=== PATIENT | male | born 1960 | race Caucasian/White ===

== ENCOUNTER 2016-05-19 08:06 | Outpatient (CLI) | payer MEDICARE ==
[~2016-05-19] VITALS: Ht 182.9 cm; Wt 82.7 kg
--- NOTE | ~2016-05-19 | HEMODYNAMI ---
PATIENT:ALFREDITO BERGERON MEDICAL RECORD: [id number] : 58 LOCATION:[facility] ADMISSION DATE: 05/19/16 Generatedon:05/19/201610:00 Patient name: ALFREDITO BERGERON Patient #: [id number] : 1960 Date of study: 05/19/2016 Page: Of Hemodynamic Procedure Report Patient Data Patient Demographics Procedure consent was obtained First Name: ALFREDITO Gender: Male Last Name: RUBIO : 1960 Middle Initial: LIZETH Age: 56 year(s) Patient #: [id number] Race: SSN: [id number] Additional ID: [id number] Contact details Address: [address] [place] [address] [place] State: [place] City: [place] Zip code: [address] Past Medical History History of disease Date Diagnosis Comments CAD Allergies: No known allergies Admission Admission Data Admission Date: 05/19/2016 Admission Time: 8:06 Arrival Date: 05/19/2016 Arrival Time: 10:00 Admit Source: Other Insurance Payor: Medicare Height (in.): 72 BSA: 1.99 (m2) Height (cm.): 182.88 BMI: 23.06 (kg/m2) Weight (lbs.): 170 Weight (kg.): 77.11 Lab Results Lab Result Date: 05/19/2016 Lab Result Time: 0:00 Biochemistry Name Units Result Min Max BUN mg/dl 13 --(--*-)-- 7 18 Creatinine mg/dl 0.9 --(-*--)-- 0.6 1.3 CBC Name Units Result Min Max Hemoglobin g/dl 15.6 --(--*-)-- 13.5 17.5 Procedure Procedure Types Cath Procedure Diagnostic Procedure [facility] w/Coronaries PCI Procedure Coronary Stent Initial Procedure Description Procedure Date Procedure Date: 05/19/2016 Procedure Start Time: 9:43 Procedure End Time: 9:57 Procedure Staff Name Function Keenan Meyer MD Performing Physician Shari Handy RT Scrub Abida Jacobs RN Nurse Benjamin Galvan RT Associate Professor Of Theology Minerva Beal RT Monitor Procedure Data Cath Procedure Fluoroscopy Diagnostic fluoroscopy Total fluoroscopy Time: 3.9 time: 3.9 min min Diagnostic fluoroscopy Total fluoroscopy dose: dose: 205.47 mGy 205.47 mGy Contrast Material Contrast Material Type Amount (ml) Isovue 370 75 Entry Location Entry Primary Successful Side Size Upsize Upsize Entry Closure Succes sful Closure Location (Fr) 1 (Fr) 2 (Fr) Remarks Device Remarks Femoral Right 5 Fr 6 Fr Exoseal artery Short Estimated blood loss: 5 ml Diagnostic catheters Device Type Used For End Catheter Placement Cordis 5Fr Pigtail LV Angiography Catheter (MP) Cordis 5Fr JL 4.0 Left Coronary Catheter (MP) Angiography Cordis 5Fr 3DRC Catheter Right Coronary (MP) Angiography Procedure Complications No complications Procedure Medications Medication Administration Route Dosage Oxygen NC 2 l/min Heparin Flush Bag added to field 2 bags (1000units/500ml NS) Lidocaine 2% added to field 20 Versed I.V. 1 mg Fentanyl I.V. 50 mcg Versed I.V. 1 mg Fentanyl I.V. 50 mcg Versed I.V. 1 mg Fentanyl I.V. 50 mcg Versed I.V. 1 mg Fentanyl I.V. 50 mcg Heparin Bolus I.V. 4000 units Hemodynamics Rest BSA: 1.99 (m2) HGB: 15.6 (g/dl) O2 Consumption: Estimated: 219.21 (ml/min) O2 Co nsumption indexed: Estimated:110.16 (ml/min/m) Heart Rate: 49 (bpm) Pressure Samples Time Site Value (mmHg) Purpose Heart Use Rate(bpm) 9:44 LV 46/39,42 Snapshot 60 Snapshots Pre Cath Intra NCS Post Cath Vital Signs Time Heart Resp SPO2 NIBP Rhythm Pain Sedation Rate (ipm) (%) (mmHg) Status Level (bpm) 9:22:31 63 16 98 125/73(90) NSR 0 (11) 10(A) , No pain 9:26:45 66 14 97 126/70(84) NSR 0 (11) 10(A) , No pain 9:30:53 68 14 94 116/69(84) NSR 0 (11) 10(A) , No pain 9:35:05 65 15 96 118/67(87) NSR 0 (11) 10(A) , No pain 9:39:19 61 15 97 113/66(77) NSR 0 (11) 10(A) , No pain 9:43:27 64 15 100 115/72(86) NSR 0 (11) 10(A) , No pain 9:47:39 64 15 99 111/67(82) NSR 0 (11) 9(A) , No pain 9:51:51 67 15 99 100/62(77) NSR 0 (11) 9(A) , No pain 9:55:54 67 16 100 105/72(85) NSR 0 (11) 9(A) , No pain 9:57:33 64 19 100 114/71(87) NSR 0 (11) 9(A) , No pain Medications Time Medication Route Dose Verified Delivered Reason Notes Effectiveness by by 9:24:25 Oxygen NC 2 Keenan Abida Per physician l/min Betsy Jacobs RN 9:24:33 Heparin Flush added 2 Keenan Keenan used for Bag to bags Betsy Meyer MD procedure (1000units/500ml field NS) 9:24:42 Lidocaine 2% added 20ml Keenan Keenan used for to vial Betsy Meyer MD procedure field 9:37:07 Versed I.V. 1 mg Keenan Abida for sedation Betsy Jacobs RN 9:37:13 Fentanyl I.V. 50 Keenan Abida for sedation mcg Betsy Jacobs RN 9:40:50 Versed I.V. 1 mg Keenan Abida for sedation Betsy Jacobs RN 9:40:58 Fentanyl I.V. 50 Keenan Abida for sedation mcg Betsy Jacobs RN 9:43:04 Versed I.V. 1 mg Keenan Abida for sedation Betsy Jacobs RN 9:43:14 Fentanyl I.V. 50 Keenan Abida for sedation mcg Betsy Jacobs RN 9:45:18 Versed I.V. 1 mg Keenan Abida for sedation Betsy Jacobs RN 9:45:21 Fentanyl I.V. 50 Keenan Abida for sedation mcg Betsy Jacobs RN 9:48:53 Heparin Bolus I.V. 4000 Keenan Abida for dose units Betsy Jacobs RN anticoagulation verified with dr meyer Procedure Log Time Note 9::42 Arrival Date: 05/19/2016 10:00:00 AM 9:07:44 Admit Source: Other 9:07:56 Patient Height : 182.88 inches 9:08:09 Patient Weight : 77.11 lbs 9:08:13 Insurance Payor : Medicare 9:08:40 Diagnostic Cath Status : Elective 9:09:14 Benjamin Galvan RT(R) sent for patient. Start room use. 9::15 Time tracking: Regular hours 9::22 Plan of Care:Hemodynamics will remain stable., Cardiac rhythm will remain stable., Comfort level will be maintained., Respiratory function will remain adequate., Patient/ family verbilizes understanding of procedure., Procedure tolerated without complication., Recovers from procedure without complications.. 9:09:26 Patient received from Outpatients to [facility] 3 Alert and oriented. Tansferred to table in Supine position. 9:09:38 H&P Date Dictated: 05/17/2016 Within 30 days and on chart., H&P Addendum completed by physician on day of procedure. (MUST COMPLETE FOR ALL OUTPATIENTS). 9:21:27 Warm blankets applied, and leslie hugger turned on for patient comfort. 9:21:27 Correct patient and procedure confirmed by team. 9:21:28 Signed procedure consent form obtained from patient. 9:21:29 ECG and BP/O2 sat monitors applied to patient. 9:21:29 Vital chart was started 9:23:27 Baseline sample Acquired. 9:24:25 Oxygen 2 l/min NC was given by Abida Jacobs RN; Per physician; 9:24:33 Heparin Flush Bag (1000units/500ml NS) 2 bags added to field was given by Keenan Meyer MD; used for procedure; 9:24:42 Lidocaine 2% 20ml vial added to field was given by Keenan Meyer MD; used for procedure; 9:25:20 Baseline sample Acquired. 9:26:57 Rhythm: sinus rhythm 9:26:59 Full Disclosure recording started 9:27:03 Pre-procedure instructions explained to patient. 9:27:04 Pre-op teaching completed and patient verbalized understanding. 9:27:06 Family in waiting room. 9:27:17 Patient NPO since Breakfast. 9:27:40 Is the patient allergic to Iodine/contrast media? No. 9:27:41 Was the patient premedicated? No 9:27:43 Is patient on blood thinner?Yes 9:27:47 ACC The patient was administered the following blood thiners within the last 24 hours: ACCPlavix 9:27:49 Patient diabetic? No. 9:27:53 Previous problem with sedation/anesthesia? No ? 9:28:36 Snore? Yes 9:28:46 Sleep apnea? No 9:29:12 Deviated septum? No 9:29:16 Opens mouth fully? Yes 9:29:17 Sticks out tongue? Yes 9:29:19 Airway obstruction? No ? 9:29:22 Dentures? No ? 9:29:28 Pre procedure: right dorsailis pedis pulse 1+ Palpable, but thready & weak; easily obliterated 9:29:31 Patient pain scale 0/10 ?. 9:29:40 IV patent on arrival in left forearm with 0.9% NaCl at [facility]. 9:30:02 Lab Result : BUN 13 mg/dl 9:30:02 Lab Result : Creatinine 0.9 mg/dl 9:30:02 Lab Result : Hemoglobin 15.6 g/dl 9:30:06 Lab results completed and on chart. 9:30:10 Right groin area was prepped with chlora-prep and draped in sterile fashion 9:30:11 Alarms reviewed by R. N. 9:30:12 Sharps counted by scrub and verified by R.N. 9:36:42 Physician arrived 9::43 --------ALL STOP TIME OUT------ 9:36:44 Final Timeout: patient, procedure, and site verified with staff and physician. All members of the team are in agreement. 9:36:47 Right groin site verified by team. 9:36:50 Physical assessment completed. ASA score P 2 - A patient with mild systemic disease as per Keenan Meyer MD. 9:36:53 Sedation plan: IV Moderate Sedation Versed, Fentanyl 9:37:07 Versed 1 mg I.V. was given by Abida Jacobs RN; for sedation; 9:37:13 Fentanyl 50 mcg I.V. was given by Abida Jacobs RN; for sedation; 9:37:36 Use device set Femoral Dx 9:37:37 Acist Syringe opened to sterile field. 9:37:38 Bag Decanter opened to sterile field. 9:37:39 Medline Cath Pack opened to sterile field. 9:37:39 Terumo 5Fr [place] Sheath opened to sterile field. 9:37:40 St Dandy 260cm J .035 wire opened to sterile field. 9:37:41 Acist Hand Control opened to sterile field. 9:37:42 Acist Manifold opened to sterile field. 9:37:43 Diagnostic Infinity 5Fr Multipack catheter opened to sterile field. 9:37:44 Tegaderm 4 x 4 opened to sterile field. 9:40:50 Versed 1 mg I.V. was given by Abida Jacobs RN; for sedation; 9:40:58 Fentanyl 50 mcg I.V. was given by Abida Jacobs RN; for sedation; 9:43:04 Versed 1 mg I.V. was given by Abida Jacobs RN; for sedation; 9:43:13 Procedure started. 9:43:14 Fentanyl 50 mcg I.V. was given by Abida Jacobs RN; for sedation; 9:43:16 Local anesthetic to right femoral artery with Lidocaine 2% by Keenan Meyer MD.INITIAL ACCESS ONLY 9:43:25 A 5 Fr sheath was inserted into the Right Femoral artery 9:44:02 A Cordis 5Fr Pigtail Catheter (MP) was advanced over the wire and used for LV Angiography. 9:44:21 LV hemodynamics recorded. 9:44:22 LV gram done using HOU 9:44:25 Injector settings: Ml/sec: 5, Volume: 15, 9:44:32 EF : 55 % 9:44:43 Catheter removed. 9:44:49 A Cordis 5Fr JL 4.0 Catheter (MP) was advanced over the wire and used for Left Coronary Angiography. 9:45:18 Versed 1 mg I.V. was given by Abida Jacobs RN; for sedation; 9:45:18 LCA angiography performed. 9:45:21 Fentanyl 50 mcg I.V. was given by Abida Jacobs RN; for sedation; 9:45:21 Injector settings: Ml/sec: 3, Volume: 6, 9:46:04 Catheter removed. 9:46:10 A Cordis 5Fr 3DRC Catheter (MP) was advanced over the wire and used for Right Coronary Angiography. 9:46:43 RCA angiography performed. 9:46:56 Injector settings: Ml/sec: 3, Volume: 6, 9:46:58 Catheter removed. 9:46:59 Proceeding to intervention. 9:47:15 Terumo 6Fr [place] Sheath opened to sterile field. 9:47:15 Mac Whisper J 300cm 0.014 guide wire opened to sterile field. 9:47:16 Signicast BasixCompak Inflation Kit opened to sterile field. 9:47:30 Medtronic Launcher 6Fr AR 2.0 SH guide catheter opened to sterile field. 9:48:53 Heparin Bolus 4000 units I.V. was given by Abida Jacobs RN; for anticoagulation; dose verified with dr meyer 9:49:16 Sheath upsized to a 6 Fr Short. 9:49:22 6 Fr ar 2 sh guide catheter was inserted over the wire 9:49:28 whisper wire advanced. 9:50:39 Inflation number: 1 A Gramercy Sci Sharkey 3.0 X 20 balloon was prepped and advanced across the Mid RCA, then inflated to 13 MYLENE for 0:10 (min:sec). 9:51:25 Inflation number: 1 The Gramercy Sci Sharkey 3.0 X 20 balloon was reinflated across the Prox RCA, to 13 MYLENE for 0:10 (min:sec). 9:51:30 Balloon removed over the wire. 9:53:16 Inflation Number: 2 A Medtronic Resolute 3.0 X 38 stent was prepped and advanced across the Mid RCA. The stent was deployed at 17 MYLENE for 0:10 (min:sec). 9:53:37 Inflation number: 3 The stent balloon was then re-inflated across the Mid RCA to 17 MYLENE for 0:10 (min:sec). 9:54:06 Stent catheter was removed intact over wire. 9:54:07 Wire removed. 9:54:08 Guide catheter removed. 9:54:25 Cordis 6Fr Exoseal opened to sterile field. 9:54:43 Sheath removed intact; hemostasis achieved with Exoseal to the Right Femoral artery. 9:55:25 Procedure ended.(Physican Out) 9:55:55 Fluoroscopy time 03.90 minutes. 9:56:02 Fluoroscopy dose: 205.47 mGy 9:56:02 Flurop Dose total: 205.47 9:56:11 Contrast amount:Isovue 370 75ml. 9:56:13 Sharps counted by scrub and verified by R.N. 9:56:14 Insertion/operative site no bleeding no hematoma. 9:56:17 Post-op/insertion site Right Femoral artery dressed using a 4 x 4 and Tegaderm. 9:56:20 Post right femoral artery:stable 9:56:21 Post Procedure Pulses reassessed and unchanged 9:56:25 Post procedure rhythm: unchanged. 9:56:28 Estimated blood loss: 5 ml 9:56:29 Post procedure instruction explained to patient.Patient verbalizes understanding. 9:56:30 Patient needs reinforcement of post procedure teaching. 9:56:39 Procedure type changed to Cath procedure, Diagnostic procedure, LHC, LHC w/Coronaries, PCI procedure, Coronary Stent Initial 9:56:42 Procedure and supply charges have been captured, reviewed, submitted and are correct. 9:56:47 Procedure Complication : No complications 9:56:50 Vital chart was stopped 9:56:51 See physician's report for complete and final results. 9:57:09 Report given to Pre/Post Procedure Room. 9:57:28 Patient transfered to Pre/Post Procedure Room with Stretcher. 9:57:30 Procedure ended. 9:57:30 Full Disclosure recording stopped 9:57:36 ACC-PCI Only Patient was given prescriptions, or instructed by Keenan Meyer MD to start/continue the following medications upon discharge: Plavix 9:57:38 End room use (Document Last) Intervention Summary Intervention Notes Time ActionType Lesion and Equipment Action# Pressure Duration Attributes Used 9:50:39 Inflate Mid RCA Gramercy 1 13 00:10 balloon Sci Sharkey 3.0 X 20 balloon 9:51:25 Reinflate Prox RCA Gramercy 1 13 00:10 balloon Sci Sharkey 3.0 X 20 balloon 9:53:16 [address] stent Mid RCA Medtronic 2 17 00:10 Resolute 3.0 X 38 stent 9:53:37 Reinflate Mid RCA Medtronic 3 17 00:10 stent Resolute balloon 3.0 X 38 stent Device Usage Item Name Manufacture Quantity Catalog Number Hospital Part Current [facility] Lot# / Charge Number Stock Stock Serial# Code Acist Acist 1 [id number] 469303 213953 922518 20 Syringe Medical Systems Inc Bag Microtek 1 2002S 970477 58419 206478 5 Decanter Medical Inc. Medline Cardinal 1 [id number] 577081 88515 614230 5 Cath Pack Health Terumo 5Fr Terumo 1 [id number] 944341 704295 492801 [address] Dandy 1 109632 110169 300448 410377 30 260cm J .035 wire Acist Hand Acist 1 36731 502101 154917 439886 5 Control Medical Systems Inc Acist Acist 1 19761 441262 777484 776300 5 Manifold Medical Systems Inc Diagnostic Cardinal 1 [id number] 199576 99751 537478 30 Infinity Health 5Fr Multipack catheter Tegaderm 4 3M 1 1626W 944649 457248 068995 5 x 4 Cordis 5Fr Cardinal 1 447062 5 Pigtail Health Catheter (MP) Cordis 5Fr Cardinal 1 072224 5 JL 4.0 Health Catheter (MP) Cordis 5Fr Cardinal 1 610612 5 3DRC Health Catheter (MP) Terumo 6Fr Terumo 1 NON859 227780 347829 256006 40 [place] Sheath Mac Mac 1 [id number] 187715 182063 733477 5 Whisper J Vascular 300cm 0.014 guide wire Merit Merit 1 [id number] 452229 227403 159189 15 BasixComcok Medical Inflation Kit Medtronic Medtronic 1 [id number] 727675 84043 644155 1 Launcher 6Fr AR 2.0 SH guide catheter Gramercy Sci Gramercy 1 [id number] 901641 161699 617951 1 [id number] Contractually Scientific 3.0 X 20 balloon Medtronic Medtronic 1 [id number] 813801 955716 0 [id number] Resolute 3.0 X 38 stent Cordis 6Fr Cardinal 1 EX600 275252 212400 277251 10 [facility] [employer] Signature Audit [place] Stage Time Signature Unsigned Intra-Procedure 05/19/2016 Minerva Beal 9:59:53 AM RT(R) Signatures Monitor : Minerva Beal RT Signature : Date : Time : [address] [place] [address]
[~2016-05-19 08:06] MED LIST: ATENOLOL25 MG PO; AZOR 10-20 MG T1 TAB PO; AZOR 5-40 MG TA1 TAB PO; BAYER CHEWABLE81 MG PO; BENICAR40 MG PO; CATAPRES0.1 MG PO; COLACE100 MG PO; DEXILANT60 MG PO; DICLOFENAC SODI50 MG PO; ELIQUIS2.5 MG PO; ENDOCET 7.5/3251 TAB PO; HYDROCODONE-APA1 TAB PO; KLONOPIN0.5 MG PO; MIRALAX17 GM PO; MS CONTIN30 MG PO; MUCINEX600 MG PO; MULTI-DAY VITAM1 TAB PO; NICODERM C1 PATCH .3 TD; NITROSTAT0.4 MG SL; NORVASC2.5 MG PO; PERCOCET 10/3251 TA1 PO; PLAVIX75 MG PO; PRAVACHOL40 MG PO; PROTONIX40 MG PO; PROVENTIL HFA6.7 GM INH; RESTORIL15 MG PO; SENOKOT-S TABLE1 TAB PO; ULORIC40 MG PO; VITAMIN B-1100 M1 PO; ZPAK PO
[2016-05-19 08:35] VITALS: BP 104/57; Ht 182.9 cm; Wt 82.7 kg
[2016-05-19 08:56] LABS: CALC OSMOLALITY 275 mosm/kg (275-300); CALCIUM 8.8 mg/dL (8.5-10.1); CARBON DIOXIDE 25.2 mmol/L (21.0-32.0); CHLORIDE - SERUM 101 mmol/L (98-107); CREATININE - SERUM 0.9 mg/dL (0.6-1.3); GLUCOSE 107 mg/dL (74-106); POTASSIUM - SERUM 3.8 mmol/L (3.5-5.1); SODIUM 138 mmol/L (136-145); UREA NITROGEN 13 mg/dL (7-18); eGFR NON AFRICAN AMERICAN > 90 mL/min (90-120)
[2016-05-19 09:06] LABS: BASOPHILS 0.3 % (0.0-2.0); EOSINOPHILS 1.8 % (0-7); HEMATOCRIT 45.1 % (42.0-54.0); HEMOGLOBIN 15.6 g/dL (13.5-17.5); IMMATURE GRANULOCYTES 0.1 % (0-5); LYMPHOCYTES 22.7 % (15-50); MCHC 34.6 g/dL (31.0-37.0); MCV 98.3 fL (80.0-100.0); MEAN PLATELET VOLUME 10.5 fL (7.4-10.4); MONOCYTES 8.8 % (2-11); NEUTROPHILS 66.3 % (40-80); PLATELET COUNT 260 10x3/uL (130-400); RBC 4.59 10x6/uL (4.20-6.10); WBC 10.6 10x3/uL (4.8-10.8)
--- NOTE | 2016-05-19 10:30 | NUR ---
VSS WITH CHEST PAIN DENIED 7 FR EXOSEAL R/GROIN CDI NO BLEEDING NO HEMATOMA NOTED. INSTRUCTED PATIENT TO KEEP HEAD FLAT ON PILLOW WITH RLE STRAIGHT
--- NOTE | 2016-05-19 11:00 | NUR ---
1100 RESTING QUIETLY WITH EYES CLOSED RESPIRATIONS ARE EVEN AND UNLABORED. NO DISTRESS NOTED. 7 FR EXOSEAL R/GROIN CDI NO BLEEDING NO HEMATOMA NOTED.
--- NOTE | 2016-05-19 11:53 | NUR ---
VSS WITH CHEST PAIN DENIED 7 FR EXOSEAL R/GROIN CDI NO BLEEDING NO HEMATOMA NOTED
--- NOTE | 2016-05-19 12:31 | NUR ---
NO CHANGE IN ASSESSMENT WILL MONITOR VSS NO DISTRESS
--- NOTE | 2016-05-19 13:20 | NUR ---
VSS WITH CHEST PAIN DENIED. 7 FR EXOSEAL R/GROIN CDI NO BLEEDING NO HEMATOMA NOTED. WILL MONITOR
--- NOTE | 2016-05-19 14:02 | NUR ---
PIV REMOVED FROM LEFT ARM WITH DRESSING APPLIED. PATIENT UP TO GET DRESSED FOR DISCHARGE HOME R/GROIN CDI NO BLEEDING NO HEMATOMA NOTED. 1415 VERBAL AND WRITTEN DISCHARGE GONE OVER WITH PATIENT AND . LEFT VIA WC TO [place] FOR TO DRIVE HOME
--- NOTE | 2016-05-28 08:46 | OP ---
PATIENT NAME: ALFREDITO BERGERON MEDICAL RECORD: [id number] :58 LOCATION:[facility] ADMISSION DATE: SURGEON: SERGIO ARMENTA MD DATE OF OPERATION: 05/19/2016 PROCEDURES: 1. PTCA stent RCA. 2. Selective coronary angiography. INDICATION: Angina and coronary artery disease. PROCEDURE: After informed consent was obtained and after a detailed explanation of risks, benefits as well as alternative therapies, the patient elected to proceed with angiogram and angioplasty. The right femoral area was prepped and draped in normal sterile fashion. The right femoral artery was cannulated via modified Seldinger technique with placement of 6-Telugu sheath. All catheters exchanged through this sheath. FINDINGS: The left ventriculogram was performed in standard 30-degree HOU view, reveals good cardiac wall motion, ejection fraction 50%. SELECTIVE CORONARY ANGIOGRAPHY: 1. Left main showed no significant angiographic disease. 2. Left anterior descending has previously placed stents, these are widely patent with no significant restenosis. No disease elsewise throughout the LAD or its branches. 3. Left circumflex has moderate irregularities, but no flow-limiting stenosis. 4. The right coronary has previously placed stents. Between the stent, 80% stenosis and in the stent, 80% to 90% in-stent restenosis. PTCA STENT OF THE RCA: The stent used covering both areas was a 3.0 x 38 mm Resolute. Result was 0% residual stenosis. OVERALL IMPRESSION: Successful percutaneous transluminal coronary angioplasty stent of the right coronary artery going from 80% to 90% initial stenosis to 0% residual. TRANSINT:[id number] Voice Confirmation ID: [id number] DOCUMENT ID: [id number] SERGIO ARMENTA MD at 0846 CC: [id number] DICTATION DATE: 05/19/16 1001 LINOLEUM LAYER: 05/19/16 1707 DEP CLI 05/19/16 [place] [id number]
== END 2016-05-19 14:11 | disposition home or self-care (01) ==
LOC: D.CATH 08:06
PROVIDERS: Internal Medicine Interventional Cardiology
DX: I25.119 Atherosclerotic heart disease of native coronary artery with unspecified angina pectoris (principal); I10 Essential (primary) hypertension; F17.200 Nicotine dependence, unspecified, uncomplicated

== ENCOUNTER 2016-09-20 07:35 | Outpatient (CLI) | payer MEDICARE, BC ==
[~2016-09-20] VITALS: Ht 182.9 cm; Wt 77.3 kg
--- NOTE | ~2016-09-20 | HEMODYNAMI ---
PATIENT:ALFREDITO BERGERON MEDICAL RECORD: [id number] : 58 LOCATION:[facility] ADMISSION DATE: 09/20/16 Generatedon:09/20/201610:35 Patient name: ALFREDITO BERGERON Patient #: [id number] : 1960 Date of study: 09/20/2016 Page: Of Hemodynamic Procedure Report Patient Data Patient Demographics Procedure consent was obtained First Name: ALFREDITO Gender: Male Last Name: RUBIO : 1960 Middle Initial: LIZETH Age: 56 year(s) Patient #: [id number] Race: SSN: [id number] Additional ID: [id number] Contact details Address: [address] [place] [address] [place] State: [place] City: [place] Zip code: [address] Past Medical History History of disease Date Diagnosis Comments CAD Allergies: No known allergies Admission Admission Data Admission Date: 09/20/2016 Admission Time: 7:35 Admit Source: Other Insurance Payor: Medicare, Private health insurance Height (in.): 72 BSA: 1.99 (m2) Height (cm.): 182.88 BMI: 23.09 (kg/m2) Weight (lbs.): 170.26 Weight (kg.): 77.23 Lab Results Lab Result Date: 09/20/2016 Lab Result Time: 0:00 Biochemistry Name Units Result Min Max BUN mg/dl 6 -*(----)-- 7 18 Creatinine mg/dl 0.9 --(-*--)-- 0.6 1.3 CBC Name Units Result Min Max Hemoglobin g/dl 14 --(*---)-- 13.5 17.5 Procedure Procedure Types Cath Procedure Diagnostic Procedure [facility] w/Coronaries PCI Procedure Coronary Stent Initial Miscellaneous Procedures Moderate Sedation up to 15 minutes Procedure Description Procedure Date Procedure Date: 09/20/2016 Procedure Start Time: 10:18 Procedure End Time: 10:32 Procedure Staff Name Function Keenan Meyer MD Performing Physician Maciel Johnson RT Scrub Karla Arvizu RN Nurse Shari Handy RT Monitor Procedure Data Cath Procedure Fluoroscopy Diagnostic fluoroscopy Total fluoroscopy Time: 2.5 time: 2.5 min min Diagnostic fluoroscopy Total fluoroscopy dose: 145 dose: 145 mGy mGy Contrast Material Contrast Material Type Amount (ml) Isovue 300 77 Entry Location Entry Primary Successful Side Size Upsize Upsize Entry Closure Succes sful Closure Location (Fr) 1 (Fr) 2 (Fr) Remarks Device Remarks Femoral Right 5 Fr 6 Fr Exoseal artery Short Estimated blood loss: 10 ml Diagnostic catheters Device Type Used For End Catheter Placement Cordis 5Fr Pigtail Ventriculography Catheter (MP) Cordis 5Fr JL 4.0 Procedure Catheter (MP) Cordis 5Fr 3DRC Catheter Procedure (MP) Procedure Complications No complications Procedure Medications Medication Administration Route Dosage Oxygen NC 2 l/min Lidocaine 2% added to field 20 Heparin Flush Bag added to field 2 bags (1000units/500ml NS) 0.9% NaCl I.V. 100 ml/hr Benadryl I.V. 50 mg Versed I.V. 2 mg Fentanyl I.V. 100 mcg Versed I.V. 1 mg Fentanyl I.V. 50 mcg Heparin Bolus I.V. 4000 units Versed I.V. 1 mg Fentanyl I.V. 50 mcg Fentanyl I.V. 50 mcg Hemodynamics Rest BSA: 1.99 (m2) HGB: 14 (g/dl) O2 Consumption: Estimated: 221.51 (ml/min) O2 Cons umption indexed: Estimated:111.31 (ml/min/m) Heart Rate: 52 (bpm) Snapshots Pre Cath Intra NCS Post Cath Vital Signs Time Heart Resp SPO2 NIBP (mmHg) Rhythm Pain Sedation Rate (ipm) (%) Status Level (bpm) 9:31:21 49 16 99 164/80(110) NSR 0 (11) 10(A) , No pain 9:35:46 54 15 99 156/88(104) NSR 0 (11) 10(A) , No pain 9:40:10 51 21 98 152/81(106) NSR 0 (11) 10(A) , No pain 9:45:19 52 16 98 164/88(108) NSR 0 (11) 10(A) , No pain 9:50:28 54 15 97 161/92(112) NSR 0 (11) 10(A) , No pain 9:54:47 52 16 95 147/86(112) NSR 0 (11) 10(A) , No pain 9:59:07 55 15 96 149/81(122) NSR 0 (11) 10(A) , No pain 10:04:08 53 16 95 132/75(111) NSR 0 (11) 10(A) , No pain 10:08:24 54 15 96 142/76(120) NSR 0 (11) 10(A) , No pain 10:12:46 57 16 96 138/70(88) NSR 0 (11) 10(A) , No pain 10:17:07 55 16 95 132/76(96) NSR 0 (11) 10(A) , No pain 10:21:24 56 16 96 143/73(112) NSR 0 (11) 9(A) , No pain 10:25:36 56 15 97 131/69(94) NSR 0 (11) 9(A) , No pain 10:29:50 57 15 96 129/66(90) NSR 0 (11) 9(A) , No pain 10:32:47 62 16 96 118/66(81) NSR 0 (11) 10(A) , No pain Medications Time Medication Route Dose Verified Delivered Reason Notes Ef fectiveness by by 9:45:53 Oxygen NC 2 Keenan Buffie used for l/min Betsy Arvizu RN procedure 9:46:00 Lidocaine 2% added 20ml Keenan Keenan for local to vial Betsy Meyer MD anesthetic field 9:46:07 Heparin Flush added 2 Keenan Buffie used for Bag to bags Betsy Arvizu RN procedure (1000units/500ml field NS) 9:46:17 0.9% NaCl I.V. 100 Keenan Buffie Per ml/hr Betsy Arvizu RN physician 9:46:26 Benadryl I.V. 50 mg Keenan Buffie used for Betsy Arvizu RN procedure 10:17:45 Versed I.V. 2 mg Keenan Buffie for Betsy Arvizu RN sedation 10:17:52 Fentanyl I.V. 100 Keenan Buffie for mcg Betsy Arvizu RN sedation 10:20:45 Versed I.V. 1 mg Keenan Buffie for Betsy Arvizu RN sedation 10:20:49 Fentanyl I.V. 50 Keenan Acosta for mcg Betsy Arvizu RN sedation 10:24:50 Heparin Bolus I.V. 4000 Keenan Acosta verified units Betsy Arvizu RN with dr meyer 10:26:38 Versed I.V. 1 mg Keenan Acosta for Betsy Arvizu RN sedation 10:26:42 Fentanyl I.V. 50 Keenan Acosta for mcg Betsy Arvizu RN sedation 10:29:30 Fentanyl I.V. 50 Keenan Acosta for mcg Betsy Arvizu RN sedation Procedure Log Time Note 8:54:15 Informed consent obtained and on chart 8:54:22 Diagnostic Cath Status : Elective 8:54:54 Admit Source: Other 9:13:23 Patient Height : 182.88 cm 9:13:34 Patient Weight : 77.23 kg 9:13:48 Insurance Payor : Private health insurance, Medicare 9:14:41 Lab Result : Hemoglobin 14 g/dl 9:14:41 Lab Result : Creatinine 0.9 mg/dl 9:14:41 Lab Result : BUN 6 mg/dl 9:14:56 Procedure type changed to Cath procedure, Diagnostic procedure, LHC, LHC w/Coronaries, PCI procedure, Coronary Stent Initial, Miscellaneous Procedures, Moderate Sedation up to 15 minutes 9:15:14 ACC Patient presents with Symptoms unlikely to be ischemic CCS Anginal Class 2--Slight limitation of ordinary activity. 9:15:17 Maciel LANDON(R) (CV) sent for patient. Start room use. 9:15:18 Time tracking: Regular hours 9:15:24 Plan of Care:Hemodynamics will remain stable., Cardiac rhythm will remain stable., Comfort level will be maintained., Respiratory function will remain adequate., Patient/ family verbilizes understanding of procedure., Procedure tolerated without complication., Recovers from procedure without complications.. 9:16:18 H&P Date Dictated: 09/07/2016 Within 30 days and on chart., H&P Addendum completed by physician on day of procedure. (MUST COMPLETE FOR ALL OUTPATIENTS). 9:16:30 Patient allergic to No known allergies 9:29:55 Patient received from Pre/Post Procedure Room to [facility] 3 Alert and oriented. Tansferred to table in Supine position. 9:29:57 Warm blankets applied, and leslie hugger turned on for patient comfort. 9:29:57 Correct patient and procedure confirmed by team. 9:29:58 ECG and BP/O2 sat monitors applied to patient. 9:30:01 Vital chart was started 9:30:05 Baseline sample Acquired. 9:30:25 Rhythm: sinus rhythm 9:30:29 Full Disclosure recording started 9:30:33 Pre-procedure instructions explained to patient. 9:30:35 Pre-op teaching completed and patient verbalized understanding. 9:30:37 Family in waiting room. 9:30:39 Patient NPO since Midnight. 9:30:44 Is the patient allergic to Iodine/contrast media? No. 9:30:56 Is patient on blood thinner?Yes 9:31:10 ACC The patient was administered the following blood thiners within the last 24 hours: ACCPlavix 9:31:13 Patient diabetic? No. 9:31:20 Snore? Yes 9:31:21 Sleep apnea? Yes 9:31:23 Deviated septum? No 9:31:31 Patient pain scale 0/10 ?. 9:31:46 IV patent on arrival in left forearm with 0.9% NaCl at KVO. 9:32:11 Lab results completed and on chart. 9:32:15 Right groin area was prepped with chlora-prep and draped in sterile fashion 9:32:18 Sharps counted by scrub and verified by R.N. 9:32:20 Physician paged 9:41:40 Physician arrived 9:41:49 Use device set Femoral Dx 9:41:51 Acist Syringe opened to sterile field. 9:41:51 Bag Decanter opened to sterile field. 9:41:52 Medline Cath Pack opened to sterile field. 9:41:53 Terumo 5Fr [place] Sheath opened to sterile field. 9:41:54 St Dandy 260cm J .035 wire opened to sterile field. 9:41:55 Acist Hand Control opened to sterile field. 9:41:56 Acist Manifold opened to sterile field. 9:41:57 Diagnostic Infinity 5Fr Multipack catheter opened to sterile field. 9:41:58 Tegaderm 4 x 4 opened to sterile field. 9:45:53 Oxygen 2 l/min NC was administered by Karla Arvizu RN; used for procedure; 9:46:00 Lidocaine 2% 20ml vial added to field was administered by Keenan Meyer MD; for local anesthetic; 9:46:07 Heparin Flush Bag (1000units/500ml NS) 2 bags added to field was administered by Karla Arvizu RN; used for procedure; 9:46:17 0.9% NaCl 100 ml/hr I.V. was administered by Karla Arvizu RN; Per physician; :46:26 Benadryl 50 mg I.V. was administered by Karla Arvizu RN; used for procedure; 9:48:32 Zero performed for pressure channel P1 10::19 --------ALL STOP TIME OUT------ 10:17:21 Final Timeout: patient, procedure, and site verified with staff and physician. All members of the team are in agreement. 10:17:23 Right groin site verified by team. 10:17:26 Physical assessment completed. ASA score P 2 - A patient with mild systemic disease as per Keenan Meyer MD. 10:17:30 Sedation plan: IV Moderate Sedation Versed, Fentanyl 10:17:45 Versed 2 mg I.V. was administered by Karla Arvizu RN; for sedation; 10:17:52 Fentanyl 100 mcg I.V. was administered by Karla Arvizu RN; for sedation; 10:18:51 Procedure started. 10:18:54 Local anesthetic to right femoral artery with Lidocaine 2% by Keenan Meyer MD.INITIAL ACCESS ONLY 10:19:12 A 5 Fr sheath was inserted into the Right Femoral artery 10:19:50 A Cordis 5Fr Pigtail Catheter (MP) was advanced over the wire and used for Ventriculography. 10:20:08 EF : 60 % 10:20:11 Catheter removed. 10:20:22 A Cordis 5Fr JL 4.0 Catheter (MP) was advanced over the wire and used for Procedure. 10:20:27 LCA angiography performed. 10:20:45 Versed 1 mg I.V. was administered by Karla Arvizu RN; for sedation; 10:20:49 Fentanyl 50 mcg I.V. was administered by Karla Arvizu RN; for sedation; 10:21:24 Catheter removed. 10:21:33 A Cordis 5Fr 3DRC Catheter (MP) was advanced over the wire and used for Procedure. 10:22:20 Catheter removed. 10::57 Terumo 6Fr [place] Sheath opened to sterile field. 10::58 Lemonwise BasixCompak Inflation Kit opened to sterile field. 10:22:59 Mac Whisper J 300cm 0.014 guide wire opened to sterile field. 10:23:00 Medtronic Launcher 6Fr 3DRC SH guide catheter opened to sterile field. 10:23:18 ACC PCI Site: mRCA has ?% stenosis. 10:23:38 Sheath upsized to a 6 Fr Short. 10:24:47 ? wire advanced. 10:24:50 Heparin Bolus 4000 units I.V. was administered by Karla Arvizu RN; ; verified with dr meyer 10:24:51 whisper wire advanced. 10::53 Wire advanced across lesion. 10::38 Versed 1 mg I.V. was administered by Karla Arvizu RN; for sedation; 10::42 Fentanyl 50 mcg I.V. was administered by Karla Arvizu RN; for sedation; 10::53 Inflation Number: 1 A Promus Premier OTW 3.0 x 12 stent was prepped and advanced across the Mid RCA. The stent was deployed at 21 MYLENE for 0:10 (min:sec). 10:27:10 Stent catheter was removed intact over wire. 10:28:37 Inflation Number: 1 A Promus Premier OTW 3.0 x 8 stent was prepped and advanced across the Prox RCA. The stent was deployed at 21 MYLENE for 0:10 (min:sec). 10::42 Stent catheter was removed intact over wire. 10:28:49 Cordis 6Fr Exoseal opened to sterile field. 10::58 Wire removed. 10::59 Guide catheter removed. 10:29:08 Sheath removed intact; hemostasis achieved with Exoseal to the Right Femoral artery. 10:29:12 Procedure ended.(Physican Out) 10:29:30 Fentanyl 50 mcg I.V. was administered by Karla Arvizu RN; for sedation; 10:30:43 Fluoroscopy time 02.50 minutes. 10:30:47 Fluoroscopy dose: 145 mGy 10:30:47 Flurop Dose total: 145 10:30:50 Contrast amount:Isovue 300 77ml. 10:30:52 Sharps counted by scrub and verified by R.N. 10:30:53 Insertion/operative site no bleeding no hematoma. 10:30:56 Post right femoral artery:stable 10:30:59 Post Procedure Pulses reassessed and unchanged 10:31:02 Post-procedure physical assessment completed. ASA score P 2 - A patient with mild systemic disease as per Keenan Meyer MD. 10:31:17 Post procedure rhythm: unchanged. 10:31:20 Estimated blood loss: 10 ml 10:31:25 Post procedure instruction explained to patient.Patient verbalizes understanding. 10:31:53 Procedure and supply charges have been captured, reviewed, submitted and are correct. 10:32:20 Procedure Complication : No complications 10:32:23 Vital chart was stopped 10:32:24 See physician's report for complete and final results. 10:32:26 Report given to Pre/Post Procedure Room. 10:32:30 Patient transfered to Pre/Post Procedure Room with Stretcher. 10:32:33 Procedure ended. 10:32:33 Full Disclosure recording stopped 10:32:36 End room use (Document Last) Intervention Summary Intervention Notes Time ActionType Lesion and Equipment Action# Pressure Duration Attributes Used 10:26:53 Place stent Mid RCA Promus 1 21 00:10 Premier OTW 3.0 x 12 stent 10:28:37 Place stent Prox RCA Promus 1 21 00:10 Premier OTW 3.0 x 8 stent Device Usage Item Name Manufacture Quantity Catalog Number Hospital Part Current Mini mal Lot# / Charge Number Stock Stock Serial# Code Acist Acist 1 [id number] [id number] 354938 082493 20 Syringe Medical Systems Inc Bag Microtek 1 2002S 281744 92090 615567 5 DecTweetworks Medical Inc. Medline Cardinal 1 [id number] 465335 89734 540113 5 Cath Pack Health Terumo 5Fr Terumo 1 [id number] 265513 798090 306728 [address] Dandy 1 [id number] 241386 657160 668723 30 260cm J .035 wire Acist Hand Acist 1 20449 102878 063698 120995 5 Control Medical Systems Inc Acist Acist 1 71640 026208 399493 769725 5 Manifold Medical Systems Inc Diagnostic Cardinal 1 [id number] 775565 58737 939523 30 Infinity Health 5Fr Multipack catheter Tegaderm 4 3M 1 1626W 082833 488538 929879 5 x 4 Cordis 5Fr Cardinal 1 282461 5 Pigtail Health Catheter (MP) Cordis 5Fr Cardinal 1 [id number] 5 JL 4.0 Health Catheter (MP) Cordis 5Fr Cardinal 1 271638 5 3DRC Health Catheter (MP) Terumo 6Fr Terumo 1 [id number] 483245 921801 331069 40 [place] Sheath Merit Merit 1 IH4700 430607 906964 411645 15 Znode Medical Inflation Kit Mac Mac 1 [id number] 445759 821176 114398 5 Whisper J Vascular 300cm 0.014 guide wire Medtronic Medtronic 1 [id number] 162046 210415 652012 1 Launcher 6Fr 3DRC SH guide catheter Promus Huffman 1 [id number] 633156 358001 5 [id number] Premier OTW Scientific 3.0 x 12 stent Promus Huffman 1 [id number] 517539 680850 5 [id number] Premier OTW Scientific 3.0 x 8 stent Cordis 6Fr Cardinal 1 [id number] 300575 750676 471799 10 [facility] Signature Audit [place] Stage Time Signature Unsigned Intra-Procedure 09/20/2016 Shari Handy 10:35:31 AM RT(R) Signatures Monitor : Shari Handy Signature : RT Date : Time : [facility] [address] [place] [address]
--- NOTE | ~2016-09-20 | OP ---
PATIENT NAME: ALFREDITO BERGERON MEDICAL RECORD: [id number] :58 LOCATION:D[facility] ADMISSION DATE: SURGEON: SERGIO ARMENTA MD DATE OF OPERATION: 09/20/2016 PROCEDURES: 1. PTCA stent RCA. 2. Left heart catheterization. 3. Selective coronary angiography. 4. Left ventriculogram. INDICATION: Angina and coronary artery disease. PROCEDURE IN DETAIL: After informed consent was obtained and after a detailed explanation of the risks, benefits as well as alternative therapies, the patient elected to proceed with angiogram and angioplasty. The right femoral area was prepped and draped in normal sterile fashion. The right femoral artery was cannulated via modified Seldinger technique with placement of 6-[place]ux[place]bourg[place] sheath. All catheters exchanged through this sheath. FINDINGS: The left ventriculogram was performed in the standard 30-degree HOU view reveals good cardiac wall motion throughout all segments. Overall ejection fraction estimated at 60%. SELECTIVE CORONARY ANGIOGRAPHY: 1. Left main showed no significant angiographic disease. 2. Left anterior descending has moderate irregularities, but no flow-limiting stenosis. 3. The left circumflex shows moderate irregularities, but no flow-limiting stenosis. 4. The right coronary has previously placed stents. There are 2 areas of 80% in-stent restenosis. PTCA STENT OF THE RIGHT CORONARY ARTERY: The stent used was a 3.0 x 12 and 3.0 x 8, both Promus stents. Result was 0% residual stenosis. OVERALL IMPRESSION: Successful percutaneous transluminal coronary angioplasty stent of the right coronary artery going from 80% initial stenosis to 0% residual stenosis. 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
[2016-09-20] MEDS ORDERED: PRAVACHOL40 MG PO (08:08)
[2016-09-20 08:09] VITALS: BP 135/85; Ht 182.9 cm; Wt 77.3 kg
[2016-09-20 08:12] LABS: BASOPHILS 0.4 % (0-2); EOSINOPHILS 2.7 % (0-7); HEMATOCRIT 40.4 % (42.0-54.0); IMMATURE GRANULOCYTES 0.4 % (0-5); LYMPHOCYTES 24.9 % (15-50); MCH 34.1 pg (26.0-34.0); MCHC 34.7 g/dL (31.0-37.0); MCV 98.5 fL (80.0-100.0); MEAN PLATELET VOLUME 9.7 fL (7.4-10.4); NEUTROPHILS 61.6 % (40-80); PLATELET COUNT 289 10x3/uL (130-400); RDW 13.5 % (11.5-14.5); WBC 9.6 10x3/uL (4.8-10.8)
[2016-09-20 08:30] LABS: CALC OSMOLALITY 275 mosm/kg (275-300); CALCIUM 8.7 mg/dL (8.5-10.1); CARBON DIOXIDE 26.3 mmol/L (21.0-32.0); CHLORIDE - SERUM 104 mmol/L (98-107); CREATININE - SERUM 0.9 mg/dL (0.6-1.3); GLUCOSE 95 mg/dL (74-106); POTASSIUM - SERUM 4.1 mmol/L (3.5-5.1); SODIUM 139 mmol/L (136-145); UREA NITROGEN 6 mg/dL (7-18); eGFR NON AFRICAN AMERICAN > 90 mL/min (90-120)
--- NOTE | 2016-09-20 11:06 | NUR ---
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 PT IS ALERT, DENIES ANY C/O CHEST PAIN. RR EVEN AND UNLABORED ON O2 AT 2LPM VIA NC. DRESSING TO RIGHT GROIN IS CDI, NO BLEEDING OR HEMATOMA NOTED. PEDAL PULSES PALPABLE. SIGNIFICANT OTHER AT BESIDE. PO FLUIDS AND SANDWICH SERVED PER PT REQUEST.
--- NOTE | 2016-09-20 11:07 | NUR ---
1100 RIGHT GROIN DRESSING CDI, PT VICKEY PO FLUIDS WITH NO C/O. PT DENIES ANY CHEST DISCOMFORT. CONTINUE TO MONITOR.
[2016-09-20] MEDS ORDERED: SOMA350 MG PO (11:12)
--- NOTE | 2016-09-20 12:12 | NUR ---
1200 PT HAS VICKEY PO FLUIDS AND SANDWICH WITH NO C/O. DRESSING TO RIGHT GROIN IS CDI, NO BLEEDING OR HEMATOMA NOTED. AREA IS SOFT AND NONTENDER. CAP REFILL IS BRISK, PEDAL PULSES PALPABLE.
--- NOTE | 2016-09-20 12:30 | NUR ---
2 CC AIR REMOVED FROM TR BAND WITH NO BLEEDING NO HEMATOMA NOTED. CHEST PAIN IS DENIED. AT BEDSIDE WILL MONITOR
--- NOTE | 2016-09-20 12:31 | NUR ---
RESTING QUIELTY WITH EYES CLOSED. NO DISTRESS NOTED. 6 FR EXOSEAL R/GROIN CDI NO BLEEDING NO HEMATOMA NOTED. VSS WILL MONITOR
--- NOTE | 2016-09-20 12:52 | NUR ---
NO CHANGE IN ASSESSMENT R/GROIN REMAINS CDI NO BLEEDING NO HEMATOMA NOTED VSS
--- NOTE | 2016-09-20 13:45 | NUR ---
1345 PT DENIES ANY C/O. DRESSING TO RIGHT GROIN IS CDI, NO BLEEDING OR HEMATOMA NOTED. AREA IS SOFT AND NONTENDER. PT VICKEY SANDWICH AND PO FLUIDS WITH NO C/O NAUSEA. VSS.
--- NOTE | 2016-09-20 14:30 | NUR ---
1415 IV DC'D WITH CATH INTACT. PT HAS VOIDED 500 CC CLEAR YELLOW URINE TO URINAL. DRESSING TO RIGHT GROIN IS CDI, NO BLEEDING OR HEMATOMA NOTED. AREA IS SOFT AND NONTENDER. ASSISTED PT TO THE BATHROOM, PT HAS HAD BM AND IS DRESSING FOR DC TO HOME. 1430 REVIEWED DC INSTRUCTIONS WITH PT AND SIGNIFICANT OTHER WHO VERBALIZE UNDERSTANDING. PT IS ON DAILY PLAVIX AND ASPIRIN, PRESCRIPTION FOR SOMA TO PATIENT. STENT CARD, EXOSEAL BOOKLET AND HOMECARE BOOKLET TO PATIENT. PT ESCORTED TO PRIVATE AUTO VIA WC BY STAFF WITH SO DRIVING HIM HOME.
== END 2016-09-20 14:30 | disposition home or self-care (01) ==
LOC: D.CATH 07:35
PROVIDERS: Internal Medicine Interventional Cardiology
DX: I25.119 Atherosclerotic heart disease of native coronary artery with unspecified angina pectoris (principal); Z01.812 Encounter for preprocedural laboratory examination
CPT/HCPCS: 93458; C9600

== ENCOUNTER 2017-05-28 13:10 | Observation (INO) | payer MEDICARE, BC ==
--- NOTE | ~2017-05-28 | HEMODYNAMI ---
PATIENT:ALFREDITO BERGERON MEDICAL RECORD: [id number] : 58 LOCATION:[address] ADMISSION DATE: 05/28/17 Generatedon:05/29/201710:27 Patient name: ALFREDITO BERGERON Patient #: [id number] : 1960 Date of study: 05/29/2017 Page: Of Hemodynamic Procedure Report Patient Data Patient Demographics Procedure consent was obtained First Name: ALFREDITO Gender: Male Last Name: RUBIO : 1960 [facility] Initial: LIZETH Age: 57 year(s) Patient #: [id number] Race: SSN: [id number] Additional ID: [id number] Contact details [address]: [address] [place] [address] [place] State: [place] City: [place] Zip code: [address] Past Medical History History of disease Date Diagnosis Comments CAD Allergies: No known allergies Admission Admission Data Admission Date: 05/28/2017 Admission Time: 16:07 Room #: [facility] Lab Results Lab Result Date: 05/29/2017 Lab Result Time: 0:00 Biochemistry Name Units Result Min Max BUN mg/dl 8 --(*---)-- 7 18 Creatinine mg/dl 0.7 --(*---)-- 0.6 1.3 CBC Name Units Result Min Max Hemoglobin g/dl 14 --(*---)-- 13.5 17.5 Procedure Procedure Types Cath Procedure Diagnostic Procedure LHC LHC w/Coronaries PCI Procedure PTCA PTCA Initial Miscellaneous Procedures Moderate Sedation up to 15 minutes Procedure Description Procedure Date Procedure Date: 05/29/2017 Procedure Start Time: 9:58 Procedure End Time: 10:24 Procedure Staff Name Function Julio Puckett MD Performing Physician Minerva Beal RT Monitor Swati Greenwood RT Scrub Karla Arvizu RN Nurse Procedure Data Cath Procedure Fluoroscopy Diagnostic fluoroscopy Total fluoroscopy Time: 0 time: 0 min min Diagnostic fluoroscopy Total fluoroscopy dose: 654 dose: 654 mGy mGy Contrast Material Contrast Material Type Amount (ml) Isovue 300 40 Entry Location Entry Primary Successful Side Size Upsize Upsize Entry Closure Succes sful Closure Location (Fr) 1 (Fr) 2 (Fr) Remarks Device Remarks Femoral Right 5 Fr 6 Fr Exoseal artery Short Estimated blood loss: 5 ml Diagnostic catheters Device Type Used For End Catheter Placement MULTIPACK JL 4.0 5Fr Left Coronary catheter Angiography MULTIPACK 3DRC 5Fr Right Coronary catheter Angiography MULTIPACK Pigtail 5 Fr LV Angiography catheter Procedure Complications Cardiogenic Shock Procedure Medications Medication Administration Route Dosage Oxygen NC 2 l/min Lidocaine 2% added to field 20 Heparin Flush Bag added to field 2 bags (1000units/500ml NS) 0.9% NaCl I.V. 100 ml/hr Versed I.V. 2 mg Fentanyl I.V. 50 mcg Versed I.V. 1 mg Fentanyl I.V. 25 mcg Angiomax (bolus) I.V. 11 ml Angiomax Drip I.V. drip 25.6 ml/hr (250mg/50ml NS) (Standard) Versed I.V. 1 mg Fentanyl I.V. 25 mcg Angiomax Drip 25.6 ml/hr (250mg/50ml NS) (Standard) Hemodynamics Rest HGB: 14 (g/dl) Heart Rate: 109 (bpm) Pressure Samples Time Site Value (mmHg) Purpose Heart Use Rate(bpm) 10:08 LV 143/-18,6 EDP 61 10:09 AO 129/65(92) Pullback 61 10:09 LV 129/7,18 Pullback 61 Gradients Valve Time Site 1 Site 2 Mean SEP/DFP Peak To Heart Use (mmHg) (sec/min) Peak Rate (mmHg) (bpm) Aortic 10:09 LV AO 5 13 0 61 129/7,18 129/65(92) Calculations Valve P-P Mean Valve Index Valve Source Name Gradient Area Flow (cm2) Aortic 0 5 0 5 Snapshots Pre Cath Intra NCS Post Cath Vital Signs Time Heart Resp SPO2 etCO2 NIBP (mmHg) Rhythm Pain Sedation Rate (ipm) (%) (mmHg) Status Level (bpm) 9:56:00 58 17 99 24.1 158/84(106) NSR 0 (11) 10(A) , No pain 10:00:42 57 13 99 30.1 160/81(105) NSR 0 (11) 10(A) , No pain 10:05:27 59 13 99 36.1 155/85(110) NSR 0 (11) 10(A) , No pain 10:10:12 59 15 99 24.8 137/78(102) NSR 0 (11) 10(A) , No pain 10:14:55 61 12 99 33.1 144/72(105) NSR 0 (11) 10(A) , No pain 10:19:37 62 17 99 31.6 153/78(107) NSR 0 (11) 10(A) , No pain 10:24:20 59 14 98 28.6 142/84(109) NSR 0 (11) 10(A) , No pain Medications Time Medication Route Dose Verified Delivered Reason Notes Effectiveness by by 9:55:12 Oxygen NC 2 Julio Buffie used for l/min Lavern Arvizu RN procedure 9:55:19 Lidocaine 2% added to field 20ml Julio Julio for local vial Lavern Puckett MD anesthetic 9:55:25 Heparin Flush added to field 2 Julio Julio used for Bag bags Lavern Puckett MD procedure (1000units/500ml NS) 9:55:34 0.9% NaCl I.V. 100 Julio Buffie Per physici an ml/hr Lavern Arvizu RN, MD 9:58:15 Versed I.V. 2 mg Julio Buffie for sedatio n Lavern Arvizu RN, MD 9:58:21 Fentanyl I.V. 50 Julio Buffie for sedatio n mcg Lavern Arvizu RN, MD 10:01:52 Versed I.V. 1 mg Julio Buffie for sedatio n Lavern Arvizu RN, MD 10:01:56 Fentanyl I.V. 25 Julio Buffie for sedatio n mcg Lavern Arvizu RN, MD 10:14:13 Angiomax (bolus) I.V. 11 ml Julio Buffie for Lavern Arvizu RN anticoagulation 10:15:05 Angiomax Drip I.V. drip 25.6 Julio Buffie for (250mg/50ml NS) ml/hr Lavern Arvizu RN anticoagulation (Standard) 10:20:12 Versed I.V. 1 mg Julio Buffie for sedatio n Lavern Arvizu RN, MD 10:20:24 Fentanyl I.V. 25 Julio Buffie for sedatio n mcg Lavern Arvizu RN, MD 10:22:01 Angiomax Drip I.V. 25.6 Julio trejo (250mg/50ml NS) drip-discontinued ml/hr Lavern Arvizu RN anticoagulation (Standard) Procedure Log Time Note 9:34:27 Time tracking: Regular hours 9:34:30 Plan of Care:Hemodynamics will remain stable., Cardiac rhythm will remain stable., Comfort level will be maintained., Respiratory function will remain adequate., Patient/ family verbilizes understanding of procedure., Procedure tolerated without complication., Recovers from procedure without complications.. 9:34:33 Karla Arvizu RN sent for patient. Start room use. 9:34:36 Signed procedure consent form obtained from patient. 9:43:40 Patient allergic to No known allergies 9:45:53 Lab Result : BUN 8 mg/dl 9:45:53 Lab Result : Hemoglobin 14 g/dl 9:45:53 Lab Result : Creatinine 0.7 mg/dl 9:55:02 Patient received from Med II to CCL 1 Alert and oriented. Tansferred to table in Supine position. 9:55:03 Warm blankets applied, and leslie hugger turned on for patient comfort. 9:55:03 Correct patient and procedure confirmed by team. 9:55:04 ECG and BP/O2 sat monitors applied to patient. 9:55:05 Vital chart was started 9:55:06 Baseline sample Acquired. 9:55:08 Full Disclosure recording started 9:55:12 Oxygen 2 l/min NC was administered by Karla Arvizu RN; used for procedure; 9:55:12 H&P Date Dictated: 05/29/2017 New H&P dictated by physician.. 9:55:13 Pre-procedure instructions explained to patient. 9:55:14 Pre-op teaching completed and patient verbalized understanding. 9:55:19 Lidocaine 2% 20ml vial added to field was administered by Julio Puckett MD; for local anesthetic; 9:55:23 Family in waiting room. 9:55:25 Heparin Flush Bag (1000units/500ml NS) 2 bags added to field was administered by Julio Puckett MD; used for procedure; 9:55:25 Patient NPO since Midnight. 9:55:34 0.9% NaCl 100 ml/hr I.V. was administered by Karla Arvizu RN; Per physician; 9:55:49 Is the patient allergic to Iodine/contrast media? No. 9:55:50 Was the patient premedicated? No 9:57:01 Is patient on blood thinner?Yes 9:57:10 ACC The patient was administered the following blood thiners within the last 24 hours: ACCPlavix 9:57:16 Patient diabetic? No. 9:57:25 Previous problem with sedation/anesthesia? No ? 9:57:27 Snore? Yes 9:57:28 Sleep apnea? No 9:57:29 Deviated septum? No 9:57:29 Opens mouth fully? Yes 9:57:30 Sticks out tongue? Yes 9:57:32 Airway obstruction? No ? 9:57:35 Dentures? No ? 9:57:38 Pre procedure: right dorsailis pedis pulse 1+ Palpable, but thready & weak; easily obliterated 9:57:40 Pre procedure: left dorsailis pedis pulse 1+ Palpable, but thready & weak; easily obliterated 9:57:42 Patient pain scale 0/10 ?. 9:57:48 IV patent on arrival in left hand with 0.9% NaCl at KVO. 9:57:52 Lab results completed and on chart. 9:57:55 Right groin area was prepped with chlora-prep and draped in sterile fashion 9:57:56 Alarms reviewed by R. N. 9:57:57 Sharps counted by scrub and verified by R.N. 9:57:57 Physician arrived 9:57:58 --------ALL STOP TIME OUT------ 9:57:59 Final Timeout: patient, procedure, and site verified with staff and physician. All members of the team are in agreement. 9:58:01 Right groin site verified by team. 9:58:03 Physical assessment completed. ASA score P 2 - A patient with mild systemic disease as per Julio Puckett MD. 9:58:07 Sedation plan: IV Moderate Sedation Medication:Versed, Fentanyl 9:58:11 Use device set Femoral Dx 9:58:11 ACIST Syringe (66338) opened to sterile field. 9:58:12 Bag Decanter (2002S) opened to sterile field. 9:58:12 Medline Cath Pack ([id number]) opened to sterile field. 9:58:13 SHEATH 5FR [place] (HXI439) opened to sterile field. 9:58:13 DIAGNOSTIC WIRE .035 260cm J wire (078309) opened to sterile field. 9:58:15 Versed 2 mg I.V. was administered by Karla Arvizu RN; for sedation; 9:58:15 ACIST Hand Control (43112) opened to sterile field. 9:58:15 ACIST Manifold (63990) opened to sterile field. 9:58:16 DIAGNOSTIC Multipack 5Fr catheter set (IF1371) opened to sterile field. 9:58:16 Tegaderm 4 x 4 (1626W) opened to sterile field. 9:58:21 Fentanyl 50 mcg I.V. was administered by Karla Arvizu RN; for sedation; 9:58:40 Procedure started. 9:58:43 Local anesthetic to right femoral artery with Lidocaine 2% by Julio Puckett MD.INITIAL ACCESS ONLY 9:59:15 Access obtained with 4Fr micropunture. 10:00:05 Zero performed for pressure channel P1 10:00:43 A 5 Fr sheath was inserted into the Right Femoral artery 10:01:26 A MULTIPACK JL 4.0 5Fr catheter was advanced over the wire and used for Left Coronary Angiography. 10:01:52 Versed 1 mg I.V. was administered by Karla Arvizu RN; for sedation; 10:01:56 Fentanyl 25 mcg I.V. was administered by Karla Arvizu RN; for sedation; 10:02:55 LCA angiography performed. 10:02:57 Injector settings: Ml/sec: 3, Volume: 6, 10:03:38 Catheter removed. 10:03:43 A MULTIPACK 3DRC 5Fr catheter was advanced over the wire and used for Right Coronary Angiography. 10:05:13 RCA angiography performed. 10:05:16 Injector settings: Ml/sec: 3, Volume: 6, 10:07:05 Catheter removed. 10:07:25 A MULTIPACK Pigtail 5 Fr catheter was advanced over the wire and used for LV Angiography. 10:08:54 LV hemodynamics recorded. 10:08:56 LV gram done using HOU 10:08:58 Injector settings: Ml/sec: 5, Volume: 15, 10:09:23 EF : 55 % 10::27 Catheter removed. 10:09:28 Proceeding to intervention. 10:10:21 COPILOT Valve Control (9802748) opened to sterile field. 10::23 INFLATOR Merit BasixCompak (CK8508) opened to sterile field. 10:10:24 SHEATH 6FR [place] (RPQ710) opened to sterile field. 10:11:29 Sheath upsized to a 6 Fr Short. 10:13:07 GUIDE 6FR ART 3.5 SH catheter ([id number]) opened to sterile field. 10:13:07 BMW 300cm [place] 2 J wire ([id number]) opened to sterile field. 10:13:16 6 Fr art 3.5 sh guide catheter was inserted over the wire 10:13:20 bmw wire advanced. 10:14:13 Angiomax (bolus) 11 ml I.V. was administered by Karla Arvizu RN; for anticoagulation; 10:15:05 Angiomax Drip (250mg/50ml NS) (Standard) 25.6 ml/hr I.V. drip was administered by Karla Arvizu RN; for anticoagulation; 10:19:02 Inflation number: 1 A CUTTING BALLOON DeliverCareRx Flextome 3.0 X 10 ([id number]) was prepped and advanced across the Prox RCA, then inflated to 6 MYLENE for 0:10 (min:sec). 10:20:12 Versed 1 mg I.V. was administered by Karla Arvizu RN; for sedation; 10:20:24 Fentanyl 25 mcg I.V. was administered by Karla Arvizu RN; for sedation; 10:20:39 Balloon removed over the wire. 10:20:39 Wire removed. 10:20:40 Guide catheter removed. 10:20:54 EXOSEAL 6Fr (EX600) opened to sterile field. 10:21:10 Sheath removed intact; hemostasis achieved with Exoseal to the Right Femoral artery. 10:21:12 Procedure ended.(Physican Out) 10:21:47 Fluoroscopy dose: 654 mGy 10:21:47 Flurop Dose total: 654 10:21:51 Fluoroscopy time 00.00 minutes. 10:21:55 Contrast amount:Isovue 300 40ml. 10:21:57 Sharps counted by scrub and verified by R.N. 10:21:58 Insertion/operative site no bleeding no hematoma. 10:22:01 Angiomax Drip (250mg/50ml NS) (Standard) 25.6 ml/hr I.V. drip-discontinued was administered by Karla Arvizu RN; for anticoagulation; 10:22:01 Post-op/insertion site Right Femoral artery dressed using a 4 x 4 and Tegaderm. 10:22:04 Post right femoral artery:stable 10:22:06 Post Procedure Pulses reassessed and unchanged 10:22:36 Post procedure rhythm: unchanged. 10:22:42 Estimated blood loss: 5 ml 10::44 Post procedure instruction explained to patient.Patient verbalizes understanding. 10:22:45 Patient needs reinforcement of post procedure teaching. 10:23:30 Procedure type changed to Cath procedure, Diagnostic procedure, LHC, LHC w/Coronaries, PCI procedure, PTCA, PTCA Initial, Miscellaneous Procedures, Moderate Sedation up to 15 minutes 10:23:53 Procedure and supply charges have been captured, reviewed, submitted and are correct. 10:24:02 Procedure Complication : Cardiogenic Shock 10:24:05 Vital chart was stopped 10:24:05 See physician's report for complete and final results. 10:24:26 Report given to [facility] II. 10:24:28 Patient transfered to Med II with Stretcher. 10:24:30 Procedure ended. 10:24:30 Full Disclosure recording stopped 10:24:41 ACC-PCI Only Patient was given prescriptions, or instructed by Julio Puckett MD to start/continue the following medications upon discharge: Plavix 10:24:43 End room use (Document Last) Intervention Summary Intervention Notes Time ActionType Lesion and Equipment Action# Pressure Duration Attributes Used 10:19:02 Inflate Prox RCA CUTTING 1 6 00:10 balloon BALLOON Preston Sci Flextome 3.0 X 10 ([id number]) Device Usage Item Name Manufacture Quantity Catalog Number Hospital Part Current Minim al Lot# / Charge Number Stock Stock Serial# Code ACIST Acist 1 16200 618483 373575 337574 20 Syringe CoreOptics (52622) Systems Inc Bag Microtek 1 116270 93688 325192 5 Decanter Medical Inc. () Medline Cardinal 1 [id number] 312380 64479 570794 5 Cath Open Labs ([id number]) SHEATH 5FR Terumo 1 AVH230 208942 542012 458556 40 [place] (POM700) DIAGNOSTIC St Dandy 1 640195 166709 057069 244572 30 WIRE .035 260cm J wire (850208) ACIST Hand Acist 1 18453 337781 778315 459605 5 Control Medical (84080) Systems Inc ACIST Acist 1 77673 018497 438863 454740 5 Manifold Medical (88116) Systems Inc DIAGNOSTIC Cardinal 1 GV9612 957976 46017 192503 30 Multipack Health 5Fr catheter set (FI5691) Tegaderm 4 3M 1 1626W 082428 023125 159940 5 x 4 (1626W) MULTIPACK Cardinal 1 993821 5 JL 4.0 5Fr Health catheter MULTIPACK Cardinal 1 952414 5 3DRC 5Fr Health catheter MULTIPACK Cardinal 1 141526 5 Pigtail 5 Health Fr catheter COPILOT Mac 1 [id number] 953314 803651 864133 5 Valve Vascular Control (2848344) INFLATOR [facility] 1 CL2227 429135 034848 449293 15 [facility] Medical BasixCompak (LK2037) SHEATH 6FR Terumo 1 XTC203 793601 424849 928463 40 [place] (SQX048) GUIDE 6FR Preston 1 [id number] 375156 658614 124545 0 ART 3.5 SH Scientific catheter ([id number]) BMW 300cm Mac 1 [id number] 855360 793987 856028 5 [place] 2 Vascular J wire (9454790L) CUTTING Preston 1 [id number] 393863 670170 670305 1 [id number] BALLOON Scientific Preston Sci Flextome 3.0 X 10 ([id number]) EXOSEAL 6Fr Cardinal 1 EX600 571651 681246 195165 10 (EX600) Health Signature Audit [place] Stage Time Signature Unsigned Intra-Procedure 05/29/2017 Minerva Beal 10:27:07 AM RT(R) Signatures Monitor : Minerva Beal RT Signature : Date : Time : [facility] [address] [place] [address]
[~2017-05-28 13:10] MED LIST changes: +SOMA350 MG PO
[2017-05-28 13:28] LABS: BASOPHILS 0.2 % (0-2); EOSINOPHILS 0.7 % (0-7); HEMATOCRIT 42.7 % (42.0-54.0); HEMOGLOBIN 15.4 g/dL (13.5-17.5); IMMATURE GRANULOCYTES 0.3 % (0-5); LYMPHOCYTES 24.4 % (15-50); MCH 36.2 pg (26.0-34.0); MCHC 36.1 g/dL (31.0-37.0); MCV 100.5 fL (80.0-100.0); MEAN PLATELET VOLUME 9.5 fL (7.4-10.4); MONOCYTES 9.8 % (2-11); NEUTROPHILS 64.6 % (40-80); PLATELET COUNT 268 10x3/uL (130-400); RBC 4.25 10x6/uL (4.20-6.10)
[2017-05-28 13:40] LABS: ALBUMIN 4.1 g/dL (3.4-5.0); ALKALINE PHOSPHATASE 70 U/L (46-116); ALT (SGPT) 56 U/L (10-68); BILIRUBIN - TOTAL 0.47 mg/dL (0.2-1.3); CALC OSMOLALITY 254 mosm/kg (275-300); CALCIUM 9.1 mg/dL (8.5-10.1); CARBON DIOXIDE 23.2 mmol/L (21.0-32.0); CHLORIDE - SERUM 89 mmol/L (98-107); CREATININE - SERUM 0.9 mg/dL (0.6-1.3); GLUCOSE 100 mg/dL (74-106); POTASSIUM - SERUM 4.4 mmol/L (3.5-5.1); PROTEIN - SERUM 7.7 g/dL (6.4-8.2); SODIUM 127 mmol/L (136-145); UREA NITROGEN 13 mg/dL (7-18); eGFR NON AFRICAN AMERICAN > 90 mL/min (90-120)
[2017-05-28 13:51] LABS: AMYLASE - SERUM 52 U/L (25-115); CHOL - HDL RATIO 4.3 ratio (2.3-4.9); CHOLESTEROL, TOTAL 200 mg/dL (0-200); CKMB 2.1 U/L (0.0-3.6); CREATINE KINASE 80 UL (21-232); HDL CHOLESTEROL 47 mg/dL (32-96); LIPASE 211 U/L (73-393); TRIGLYCERIDE 403 mg/dL (30-200)
[2017-05-28 13:52] LABS: TROPONIN-I < 0.017 ng/mL (0.000-0.060)
[2017-05-28 17:06] VITALS: BP 151/83; BMI 20.8
[2017-05-28 22:15] VITALS: BP 91/58
[2017-05-28 23:09] LABS: CKMB 1.8 U/L (0.0-3.6); CREATINE KINASE 58 UL (21-232)
[2017-05-28 23:11] LABS: TROPONIN-I < 0.017 ng/mL (0.000-0.060)
[2017-05-29 01:30] VITALS: BP 100/53
[2017-05-29 05:35] LABS: BASOPHILS 0.1 % (0-2); EOSINOPHILS 1.1 % (0-7); HEMATOCRIT 40.9 % (42.0-54.0); IMMATURE GRANULOCYTES 0.1 % (0-5); LYMPHOCYTES 28.4 % (15-50); MCH 34.7 pg (26.0-34.0); MCHC 34.2 g/dL (31.0-37.0); MCV 101.5 fL (80.0-100.0); MEAN PLATELET VOLUME 10.2 fL (7.4-10.4); MONOCYTES 9.7 % (2-11); NEUTROPHILS 60.6 % (40-80); PLATELET COUNT 228 10x3/uL (130-400); RBC 4.03 10x6/uL (4.20-6.10)
[2017-05-29 05:39] LABS: WBC 7.3 10x3/uL (4.8-10.8)
[2017-05-29 05:59] LABS: CALCIUM 8.5 mg/dL (8.5-10.1); CARBON DIOXIDE 24.4 mmol/L (21.0-32.0); CHLORIDE - SERUM 103 mmol/L (98-107); CREATINE KINASE 46 UL (21-232); CREATININE - SERUM 0.7 mg/dL (0.6-1.3); GLUCOSE 105 mg/dL (74-106); MAGNESIUM - SERUM 1.7 mg/dL (1.8-2.4); SODIUM 137 mmol/L (136-145); eGFR NON AFRICAN AMERICAN > 90 mL/min (90-120)
[2017-05-29 06:05] LABS: CALC OSMOLALITY 271 mosm/kg (275-300); POTASSIUM - SERUM 3.3 mmol/L (3.5-5.1); TROPONIN-I < 0.017 ng/mL (0.000-0.060); UREA NITROGEN 8 mg/dL (7-18)
[2017-05-29 06:20] VITALS: BP 133/72
[2017-05-29 08:40] VITALS: BP 115/68
[2017-05-29 16:29] VITALS: BP 103/58
[2017-05-29 20:00] VITALS: BP 146/82
[2017-05-30 04:00] VITALS: BP 120/77
[2017-05-30 05:08] LABS: BASOPHILS 0.2 % (0-2); EOSINOPHILS 1.8 % (0-7); HEMATOCRIT 40.9 % (42.0-54.0); HEMOGLOBIN 14.1 g/dL (13.5-17.5); IMMATURE GRANULOCYTES 0.2 % (0-5); LYMPHOCYTES 22.8 % (15-50); MCH 35.5 pg (26.0-34.0); MCHC 34.5 g/dL (31.0-37.0); MEAN PLATELET VOLUME 10.2 fL (7.4-10.4); MONOCYTES 8.1 % (2-11); NEUTROPHILS 66.9 % (40-80); PLATELET COUNT 219 10x3/uL (130-400); RBC 3.97 10x6/uL (4.20-6.10)
[2017-05-30 05:14] LABS: WBC 10.8 10x3/uL (4.8-10.8)
[2017-05-30 05:34] LABS: ALBUMIN 3.5 g/dL (3.4-5.0); ALKALINE PHOSPHATASE 59 U/L (46-116); CALC OSMOLALITY 274 mosm/kg (275-300); CALCIUM 8.1 mg/dL (8.5-10.1); CARBON DIOXIDE 25.6 mmol/L (21.0-32.0); CHLORIDE - SERUM 103 mmol/L (98-107); CREATININE - SERUM 0.8 mg/dL (0.6-1.3); GLUCOSE 118 mg/dL (74-106); POTASSIUM - SERUM 3.7 mmol/L (3.5-5.1); PROTEIN - SERUM 6.6 g/dL (6.4-8.2); SODIUM 138 mmol/L (136-145); UREA NITROGEN 8 mg/dL (7-18); eGFR NON AFRICAN AMERICAN > 90 mL/min (90-120)
[2017-05-30 05:35] LABS: ALT (SGPT) 35 U/L (10-68)
[2017-05-30 07:48] VITALS: BP 138/72
== END 2017-05-30 08:54 | disposition home or self-care (01) ==
LOC: D.ER 13:10 → D.M2 16:07 → OBSVTIME 16:08 → D.M2 05-30 08:54
PROVIDERS: Emergency Medicine; Family Medicine
DX: T82.855A Stenosis of coronary artery stent, initial encounter (principal); Y83.8 Other surgical procedures as the cause of abnormal reaction of the patient, or of later complication, without mention of misadventure at the time of the procedure; I25.110 Atherosclerotic heart disease of native coronary artery with unstable angina pectoris; Z95.5 Presence of coronary angioplasty implant and graft; I10 Essential (primary) hypertension; E78.2 Mixed hyperlipidemia; K21.9 Gastro-esophageal reflux disease without esophagitis; Z72.0 Tobacco use; R91.1 Solitary pulmonary nodule

== ENCOUNTER 2018-12-26 05:35 | Day surgery (SDC) | payer MEDICARE, BC ==
[2018-12-25 12:03] LABS: HEMATOCRIT 43.2 % (42.0-54.0); HEMOGLOBIN 16.2 g/dL (13.5-17.5); MCH 36.7 pg (26.0-34.0); MCHC 37.5 g/dL (31.0-37.0); MEAN PLATELET VOLUME 9.8 fL (7.4-10.4); RBC 4.41 10x6/uL (4.20-6.10); RDW 13.9 % (11.5-14.5); WBC 13.5 10x3/uL (4.8-10.8)
[~2018-12-26] VITALS: Ht 182.9 cm; Wt 74.4 kg
[~2018-12-26 05:35] MED LIST changes: +NORVASC10 MG PO; +OXYCODONE HCL E20 MG PO
[2018-12-26 06:16] VITALS: BP 137/85; Ht 182.9 cm; Wt 74.4 kg
[2018-12-26] MEDS ORDERED: OXYCODONE HCL10 MG PO (09:31)
--- NOTE | 2018-12-26 10:18 | NUR ---
PT APPEARS TO BE RESTING COMFORTABLEY. PT STATES "HE IS READY TO SEE HIS AND THAT HELPS TO CALM ME."
--- NOTE | 2018-12-26 10:40 | NUR ---
1035 ICE CAP PLACED. COFFEE AND LEMON ELY SHOSHONE SERVED.
--- NOTE | 2018-12-26 13:24 | OP ---
PATIENT NAME: ALFREDITO TEE MEDICAL RECORD: [id number] :58 [facility] DATE: SURGEON: AP YI DO DATE OF OPERATION: 12/26/2018 PROCEDURE PERFORMED: Right small finger proximal phalanx open reduction and percutaneous pinning. PREOPERATIVE DIAGNOSIS: A transverse fracture of the right small finger proximal phalanx, displaced. POSTOPERATIVE DIAGNOSIS: A transverse fracture of the right small finger proximal phalanx, displaced. INDICATIONS: Mr. Tee is a 58-year-old male who broke his proximal phalanx of his right small finger. About 10 days ago, he waited to have surgery and he was aware of the risks including infection, bleeding, damage to nerves and vessels, malrotation, shortening, malunion, nonunion of the proximal phalanx, adhesions of the tendon and he signed the consent. SURGEON: Ap Yi MD COMPOUND MIXER: Renny Limon, advanced nurse practitioner and Nayana Dong, certified entry level assistant manager. DESCRIPTION OF PROCEDURE: The patient was taken to the operative suite, laid in the supine position, given 2 grams of Ancef preoperatively. Right upper extremity was prepped and draped in sterile fashion. Timeout was performed. Everyone was in agreement as to correct side, site, patient and procedure. We then did try to attempt a closed reduction of the finger, which was not successful. I opened on the dorsal surface of the proximal phalanx and finally got a reduction and then K-wires were crossed through the fracture site holding it in place. This was confirmed on AP and lateral x-rays with adequate reduction and there did not appear to be any malrotation of the finger. The pins were bent and cut and then the site was closed. Skin was closed with 5-0 Monocryl in a horizontal mattress fashion. Adaptic then covered the pins and the incision. The patient was placed in ulnar gutter splints 3 x 12 after the site was dressed with 4 x 4s and cast padding. He was awakened and taken to recovery in stable condition. The finger was given a digital block of 2% Marcaine with epinephrine on the ulnar and radial sides with 2 mL of 0.5% Marcaine with epinephrine following the procedure. BLOOD LOSS: Minimal. COMPLICATIONS: None. TRANSINT:[id number] Voice Confirmation ID: [id number] DOCUMENT ID: [id number] OPERATIVE REPORT [id number] ALFREDITO TEE MICHAEL D, DO at 1324 CC: [id number] DICTATION DATE: 12/26/18929 REFRACTORY GRINDER OPERATOR: 12/26/18 1139 [facility] 12/26/18 [facility] [address] [place] [id number]
== END 2018-12-26 12:25 | disposition home or self-care (01) ==
LOC: D.OPS 05:35 → D.PAN 07:30 → D.OPS 07:30 → D.PAN 08:00 → D.OPS 08:00 → D.PAN 14:30 → D.OPS 18:00 → D.PAN 18:15
PROVIDERS: Anesthesiology; ATTEND Orthopaedic Surgery
DX: S62.616A Displaced fracture of proximal phalanx of right little finger, initial encounter for closed fracture (principal); X58.XXXA Exposure to other specified factors, initial encounter

== ENCOUNTER 2020-01-10 16:18 | Observation (INO) | payer MEDICARE, BC ==
[~2020-01-10] VITALS: Ht 182.9 cm; Wt 72.3 kg
--- NOTE | ~2020-01-10 | HEMODYNAMI ---
PATIENT:ALFREDITO BERGERON MEDICAL RECORD: [id number] : 58 [facility]# [id number] ADMISSION DATE: 01/10/20 Generatedon:01/11/202010:42 Patient name: ALFREDITO BERGERON Patient #: [id number] : 1960 Date of study: 01/11/2020 Page: Of Hemodynamic Procedure Report Patient Data Patient Demographics First Name: ALFREDITO Gender: Male Last Name: RUBIO : 1960 [facility] Initial: LIZETH Age: 59 year(s) Patient #: [id number] Race: SSN: [id number] Additional ID: [id number] Contact details Address: [address] [place] [address] [place] State: [place] City: [place] Zip code: [address] Past Medical History History of disease Date Diagnosis Comments CAD Allergies: No known allergies Admission Admission Data Admission Date: 01/10/2020 Admission Time: 19:00 Arrival Date: 01/11/2020 Arrival Time: 0:00 Admit Source: Emergency Insurance Payor: Medicare department [facility] #: [id number] Room #: D.E10 Height (in.): 71.65 BSA: 1.92 (m2) Height (cm.): 182 BMI: 21.74 (kg/m2) Weight (lbs.): 158.73 Weight (kg.): 72 Lab Results Lab Result Date: 01/11/2020 Lab Result Time: 0:00 Biochemistry Name Units Result Min Max BUN mg/dl 6 -*(----)-- 7 18 Creatinine mg/dl 0.7 --(*---)-- 0.6 1.3 eGFR ml/min 90 --(*---)-- 90 120 NONAFRICAN CBC Name Units Result Min Max Hemoglobin g/dl 12.8 -*(----)-- 13.5 17.5 Procedure Procedure Types Cath Procedure Diagnostic Procedure LHC LHC w/Coronaries FFR/IVUS FFR Initial Sedation Charges Moderate Sedation up to 30 minutes Peripheral Cath Diagnostic Procedure 4-Vessel Bilateral Carotid Arteriogram Procedure Description Procedure Date Procedure Date: 01/11/2020 Procedure Start Time: 10:09 Procedure End Time: 10:36 Procedure Staff Name Function Donis Rowe RN Nurse Shiva Hernandez MD Performing Physician Shari Handy RT Monitor Etta Perez RT Scrub Indication Chest pain Procedure Data Cath Procedure Fluoroscopy Diagnostic fluoroscopy Total fluoroscopy Time: 0 time: 0 min min Diagnostic fluoroscopy Total fluoroscopy dose: 618 dose: 618 mGy mGy Contrast Material Contrast Material Type Amount (ml) Isovue 300 105 Entry Location Entry Primary Successful Side Size Upsize Upsize Entry Closure Succes sful Closure Location (Fr) 1 (Fr) 2 (Fr) Remarks Device Remarks Femoral Right 5 Fr 6 Fr Exoseal artery Short Estimated blood loss: 10 ml Diagnostic catheters Device Type Used For End Catheter Placement MULTIPACK JL 4.0 5Fr Procedure catheter MULTIPACK 3DRC 5Fr Procedure catheter MULTIPACK Pigtail 5 Fr Ventriculography catheter Procedure Complications No complications Procedure Medications Medication Administration Route Dosage Oxygen etCO2 Nasal cannula 2 l/min Heparin Flush Bag added to field 2 bags (1000units/500ml NS) 0.9% NaCl I.V. 100 ml/hr Lidocaine 2% added to field 20 Fentanyl I.V. 50 mcg Versed I.V. 1 mg Fentanyl I.V. 50 mcg Versed I.V. 1 mg Fentanyl I.V. 50 mcg Versed I.V. 1 mg Fentanyl I.V. 50 mcg Versed I.V. 1 mg Fentanyl I.V. 50 mcg Heparin Bolus I.V. 2000 units Versed I.V. 1 mg Solumedrol I.V. 125 mg Hemodynamics Rest BSA: 1.92 (m2) HGB: 12.8 (g/dl) O2 Consumption: Estimated: 214.87 (ml/min) O2 Co nsumption indexed: Estimated:111.91 (ml/min/m) Heart Rate: 55 (bpm) Pressure Samples Time Site Value (mmHg) Purpose Heart Use Rate(bpm) 10:18 LV 155/9,14 Snapshot 56 10:18 LV 161/12,42 Pullback 55 10:18 AO 159/89(115) Pullback 55 Gradients Valve Time Site 1 Site 2 Mean SEP/DFP Peak To Heart Use (mmHg) (sec/min) Peak Rate (mmHg) (bpm) Aortic 10:18 LV AO 2 7 2 55 161/12,42 159/89(115) Calculations Valve P-P Mean Valve Index Valve Source Name Gradient Area Flow (cm2) Aortic 2 2 2 2 Snapshots Pre Cath Intra NCS Post Cath Vital Signs Time Heart Resp SPO2 etCO2 NIBP (mmHg) Rhythm Pain Sedation Rate (ipm) (%) (mmHg) Status Level (bpm) 9:58:25 58 17 99 0 190/93(120) NSR 0 (11) 10(A) , No pain 10:03:43 54 16 97 0 164/86(122) NSR 0 (11) 10(A) , No pain 10:08:05 53 16 93 0 148/89(110) NSR 0 (11) 10(A) , No pain 10:12:23 52 17 96 0 135/82(105) NSR 0 (11) 10(A) , No pain 10:17:32 58 16 95 0 149/88(128) NSR 0 (11) 9(A) , No pain 10:21:48 57 17 95 0 158/85(98) NSR 0 (11) 9(A) , No pain 10:26:11 58 16 93 0 145/83(109) NSR 0 (11) 9(A) , No pain 10:30:26 54 16 97 0 160/83(124) NSR 0 (11) 9(A) , No pain 10:34:34 54 7 94 0 157/84(107) NSR 0 (11) 9(A) , No pain Medications Time Medication Route Dose Verified Delivered Reason Notes Effectiveness by by 9:57:11 Oxygen etCO2 2 Shiva Dykes Per physician Nasal l/min St Alfredito Rowe RN cannula 9:57:20 Heparin Flush added 2 Shiva Dykes used for Bag to bags St Alfredito Rowe RN procedure (1000units/500ml field SEGURA NS) 9:57:35 0.9% NaCl I.V. 100 Shiva Dykes Per physician ml/hr St Alfredito Rowe RN, MD 9:57:46 Lidocaine 2% added 20ml Shiva Dykes for local to vial St Alfredito Rowe RN anesthetic field SEGURA 10:05:37 Fentanyl I.V. 50 Shiva Dykes for sedation mcg [facility] Alfredito Rowe RN, MD 10:05:44 Versed I.V. 1 mg Shiva Donis for sedation St Alfredito Rowe RN, MD 10:07:30 Fentanyl I.V. 50 Shiva Donis for sedation mcg [facility] Alfredito Rowe RN, MD 10:07:35 Versed I.V. 1 mg Shiva Donis for sedation St Alfredito Rowe RN, MD 10:09:35 Fentanyl I.V. 50 Shiva Donis for sedation mcg St Alfredito Rowe RN, MD 10:09:39 Versed I.V. 1 mg Shiva Donis for sedation St Alfredito Rowe RN, MD 10:12:16 Fentanyl I.V. 50 Shiva Donis for sedation mcg [facility] Alfredito Rowe RN, MD 10:13:25 Versed I.V. 1 mg Shiva Donis for sedation St Alfredito Roew RN, MD 10:15:13 Fentanyl I.V. 50 Shiva Donis for sedation [facility] St Alfredito Rowe RN, MD 10:21:39 Heparin Bolus I.V. [address] units [address] Alfredito nam MD 10:24:04 Versed I.V. 1 mg Shiva Dykes for sedation St Alfredito Rowe RN, MD 10:40:04 Solumedrol I.V. 125 Shiva Dykes Per physician mg St Alfredito Rowe RN, MD Procedure Log Time Note 9:30:45 Arrival Date: 01/11/2020 12:00:00 AM 9:31:10 Admit Source: Emergency department 9:31:14 Insurance Payor : Medicare 9:31:19 Patient Height : 71.65 inches 9:31:28 Patient Weight : 158.73 lbs 9:32:07 Lab Result : eGFR NONAFRICAN 90 ml/min 9:32:07 Lab Result : Hemoglobin 12.8 g/dl 9:32:07 Lab Result : BUN 6 mg/dl 9:32:07 Lab Result : Creatinine 0.7 mg/dl 9:32:14 Diagnostic Cath Status : Urgent 9:32:46 Indication : Chest pain 9:33:00 Procedure Status Urgent Heart Cath (IP). 9:33:04 Donis Rowe RN sent for patient. Start room use. 9:33:06 Time tracking: Call back (After hours or weekends) 9:33:12 Plan of Care:Hemodynamics will remain stable., Cardiac rhythm will remain stable., Comfort level will be maintained., Respiratory function will remain adequate., Patient/ family verbilizes understanding of procedure., Procedure tolerated without complication., Recovers from procedure without complications.. 9:33:19 Patient received from ED to CCL 1 Alert and oriented. Tansferred to table in Supine position. 9:33:20 Warm blankets applied, and leslie hugger turned on for patient comfort. 9:33:21 Correct patient and procedure confirmed by team. 9:33:22 ECG and BP/O2 sat monitors applied to patient. 9:33:34 H&P Date Dictated: 01/10/2020 Within 30 days and on chart., H&P Addendum completed by physician on day of procedure. (MUST COMPLETE FOR ALL OUTPATIENTS). 9:57:11 Oxygen 2 l/min etCO2 Nasal cannula was administered by Donis Rowe RN; Per physician; Verbal order read back and verified. 9:57:20 Heparin Flush Bag (1000units/500ml NS) 2 bags added to field was administered by Donis Rowe RN; used for procedure; Verbal order read back and verified. 9:57:35 0.9% NaCl 100 ml/hr I.V. was administered by Donis Rowe RN; Per physician; Verbal order read back and verified. 9:57:46 Lidocaine 2% 20ml vial added to field was administered by Donis Rowe RN; for local anesthetic; Verbal order read back and verified. 10:02:23 Vital chart was started 10:02:24 Baseline sample Acquired. 10:02:33 Rhythm: sinus rhythm 10:02:34 Full Disclosure recording started 10:02:43 Family in patients room. 10:02:45 Patient NPO since Midnight. 10:02:56 Patient allergic to No known allergies 10:03:00 Is the patient allergic to Iodine/contrast media? No. 10:03:01 Was the patient premedicated? Yes 10:03:03 Is patient on blood thinner?Yes 10:03:07 ACC The patient was administered the following blood thiners within the last 24 hours: ACCPlavix 10:03:10 Patient diabetic? No. 10:03:14 Snore? Yes 10:03:15 Sleep apnea? Unknown 10:03:23 Dentures? No ? 10:03:37 Patient pain scale 0/10 ?. 10:03:47 IV patent on arrival in left forearm with 0.9% NaCl at KVO. 10:03:51 Lab results completed and on chart. 10:03:56 Stress Test: no; abnormal ? 10:04:00 Right groin area was prepped with chlora-prep and draped in sterile fashion 10:04:03 Alarms reviewed by RMamadou N. 10:04:10 Sharps counted by scrub and verified by R.N. 10:04:11 Physician arrived 10:04:12 --------ALL STOP TIME OUT------ 10:04:13 Final Timeout: patient, procedure, and site verified with staff and physician. All members of the team are in agreement. 10:04:16 Right groin site verified by team. 10:04:20 Fire Safety Assessment: A--An alcohol-based skin anteseptic being used preoperatively., C--Open oxygen or nitrous oxide is being used., D--An ESU, laser, or fiber-optic light is being used. 10:04:25 Physical assessment completed. ASA score P 3 - A patient with severe systemic disease as per Shiva Hernandez MD. 10:04:28 1) 90+ Normal kidney functon but urine findings or structural abnormalities or genetic trait point to kidney disease. 10:04:31 Maximum allowable contrast dose (3.7 X eGFR X 0.75)250 ml. 10:04:37 Sedation plan: IV Moderate Sedation Medication:Versed, Fentanyl 10:04:44 Use device set Femoral Dx 10:04:46 ACIST Syringe (79408) opened to sterile field. 10:04:47 Medline Cath Pack ([id number]) opened to sterile field. 10:04:47 Bag Decanter (2002S) opened to sterile field. 10:04:49 ACIST Hand Control (51506) opened to sterile field. 10:04:51 ACIST Manifold (36814) opened to sterile field. 10:04:52 DIAGNOSTIC Multipack 5Fr catheter set (MS4483) opened to sterile field. 10:04:54 SHEATH 5FR Bentley (DMB433) opened to sterile field. 10:04:56 EMERALD Guide Wire (611-271) opened to sterile field. 10:05:37 Fentanyl 50 mcg I.V. was administered by Donis Rowe RN; for sedation; Verbal order read back and verified. 10:05:44 Versed 1 mg I.V. was administered by Donis Rowe RN; for sedation; Verbal order read back and verified. 10:07:30 Fentanyl 50 mcg I.V. was administered by Donis Rowe RN; for sedation; Verbal order read back and verified. 10:07:35 Versed 1 mg I.V. was administered by Donis Rowe RN; for sedation; Verbal order read back and verified. 10:09:04 Tegaderm 4 x 4 (1626W) opened to sterile field. 10:09:07 Procedure started. 10:09:26 Local anesthetic to right femoral artery with Lidocaine 2% by Shiva Hernandez MD.INITIAL ACCESS ONLY 10:09:35 Fentanyl 50 mcg I.V. was administered by Donis Rowe RN; for sedation; Verbal order read back and verified. 10:09:36 A 5 Fr sheath was inserted into the Right Femoral artery 10:09:39 Versed 1 mg I.V. was administered by Donis Rwoe RN; for sedation; Verbal order read back and verified. 10:12:16 Fentanyl 50 mcg I.V. was administered by Donis Rowe RN; for sedation; Verbal order read back and verified. 10:12:19 A MULTIPACK JL 4.0 5Fr catheter was advanced over the wire and used for Procedure. 10:12:27 LCA angiography performed. 10:13:25 Versed 1 mg I.V. was administered by Donis Rowe RN; for sedation; Verbal order read back and verified. 10:13:48 Catheter removed. 10:15:13 Fentanyl 50 mcg I.V. was administered by Donis Rowe RN; for sedation; Verbal order read back and verified. 10:16:13 A MULTIPACK 3DRC 5Fr catheter was advanced over the wire and used for Procedure. 10:16:17 RCA angiography performed. 10:16:37 Right carotid angiography performed. 10:16:38 Left carotid angiography performed. 10:16:43 Catheter removed. 10:17:53 A MULTIPACK Pigtail 5 Fr catheter was advanced over the wire and used for Ventriculography. 10:17:55 Zero performed for pressure channel P1 10:19:02 LV gram done using HOU 10:19:06 EF : 55 % 10:19:08 Catheter removed. 10:19:15 WHISPER 300cm guide wire ([id number]) opened to sterile field. 10:19:15 INFLATOR Merit BasixCompak (EK7891) opened to sterile field. 10:19:16 SHEATH 6FR Bentley (FYG039) opened to sterile field. 10:19:17 GUIDE 6FR XB 3.5 catheter ([id number]) opened to sterile field. 10:19:23 Proceeding to intervention. 10:19:52 Sheath upsized to a 6 Fr Short. 10:20:09 6 Fr XB3.5 guide catheter was inserted over the wire 10:21:39 Heparin Bolus 2000 units I.V. was administered by Donis Rowe RN; for anticoagulation; Verbal order read back and verified. 10:22:38 FFR/IFR wire advanced. 10:24:04 Versed 1 mg I.V. was administered by Donis Rowe RN; for sedation; Verbal order read back and verified. 10:27:04 pCirc lesion measured at 1.00 with IFR 10:27:10 Wire removed. 10:27:12 Guide Catheter removed. 10:28:32 EXOSEAL 6Fr (EX600) opened to sterile field. 10:29:57 Sheath removed intact; hemostasis achieved with Exoseal to the Right Femoral artery. 10:29:59 Procedure ended.(Physican Out) 10:30:12 Fluoroscopy time 00.00 minutes. 10:30:16 Fluoroscopy dose: 618 mGy 10:30:16 Flurop Dose total: 618 10:30:20 Dose Area Product 94519 mGy/cm. 10:30:25 Contrast amount:Isovue 300 105ml. 10:30:27 Maximum allowable dose exceeded? No. 10:30:29 Sharps counted by scrub and verified by R.N. 10:31:11 Insertion/operative site no bleeding no hematoma. 10:31:16 Post-op/insertion site Right Femoral artery dressed using a 4 x 4 and Tegaderm. 10:31:18 Post Procedure Pulses reassessed and unchanged 10:31:25 Post-procedure physical assessment completed. ASA score P 2 - A patient with mild systemic disease as per Shiva Hernandez MD. 10:31:31 Post procedure rhythm: unchanged. 10:31:38 Estimated blood loss: 10 ml 10:31:40 Post procedure instruction explained to patient.Patient verbalizes understanding. 10:32:43 Procedure type changed to Cath procedure, Diagnostic procedure, LHC, LHC w/Coronaries, FFR/IVUS, FFR Initial, Sedation Charges, Moderate Sedation up to 30 minutes, Peripheral Cath Diagnostic Procedure, 4-Vessel, Bilateral Carotid Arteriogram 10:33:04 ACT drawn and resulted at 161 seconds. (normal therapeutic range 180-240 seconds). 10:33:23 Procedure and supply charges have been captured, reviewed, submitted and are correct. 10:35:28 Procedure Complication : No complications 10:35:31 Vital chart was stopped 10:35:33 LHC Findings: mild to moderate CAD (<70%) 10:35:42 4Vessel Findings: mild to moderate disease (<70%, see procedure notes) 10:35:47 Operative report dictated upon procedure completion. 10:35:48 See physician's report for complete and final results. 10:35:49 Report given to Pre/Post Procedure Room. 10:35:52 Patient transfered to Pre/Post Procedure Room with Stretcher. 10:36:00 Full Disclosure recording stopped 10:36:00 Procedure ended. 10:36:04 End room use (Document Last) 10:40:04 Solumedrol 125 mg I.V. was administered by Donis Rowe RN; Per physician; Verbal order read back and verified. Device Usage Item Name Manufacture Quantity Catalog Hospital Part Current Minimal L ot# / Number Charge Number Stock Stock Serial# Code ACIST Acist 1 81884 713198 [id number] [id number] 20 Syringe Medical (08515) Systems Inc Bag Microtek 1 925637 96926 213144 5 Decanter Medical Inc. () Medline Medline 1 [id number] 603089 38181 779738 5 Cath Pack ([id number]) ACIST Hand Acist 1 40926 529888 502265 912378 5 Control Medical (37073) Systems Inc ACIST Acist 1 95838 441709 535233 025446 5 Manifold Medical (49921) Systems Inc DIAGNOSTIC Cardinal 1 WH2887 554915 14853 141019 30 Call [facility] Bellabox 5Fr catheter set (MC0569) SHEATH 5FR Terumo 1 FJJ180 136740 787509 605440 5 Bentley (XYO112) EMERALD Cardinal 1 502-843 943659 764365 060638 5 Guide Wire Health (502455) Tegaderm 4 3M 1 1626W 646483 695091 982892 5 x 4 (1626W) MULTIPACK Cardinal 1 176747 5 JL 4.0 5Fr Health catheter MULTIPACK Cardinal 1 382684 5 3DRC 5Fr Health catheter MULTIPACK Cardinal 1 153889 5 Pigtail 5 Health Fr catheter INFLATOR Merit 1 XS3935 395808 660157 274981 15 [facility] Medical BasixCompak (GE1562) WHISPER Mac 1 [id number] 682100 528090 964506 5 300cm guide Vascular wire (0924273UH) SHEATH 6FR Terumo 1 HVP270 458016 371024 741397 40 Bentley (SAP692) GUIDE 6FR Cardinal 1 [id number] 942134 785460 467078 2 XB 3.5 Health catheter (96233249) EXOSEAL 6Fr Cardinal 1 EX600 555888 002644 262845 10 (EX600) Health Signature Audit [place] Stage Time Signature Unsigned Intra-Procedure 01/11/2020 Shari Handy 10:41:54 AM RT(R) Intra-Procedure 01/11/2020 Donis Rowe 10:42:21 AM RN Intra-Procedure 01/11/2020 Shiva Cota 10:42:42 AM Alfredito SEGURA [facility] [address] [place] [address]
--- NOTE | ~2020-01-10 | HP ---
PATIENT: ALFREDITO BERGERON MEDICAL RECORD: [id number] ACCOUNT: [id number] LOCATION:[facility] : 58 ADMISSION DATE: 01/10/20 PCP: ALFREDITO العراقي MD HISTORY AND PHYSICAL EXAMINATION HISTORY OF PRESENT ILLNESS: A 59-year-old gentleman with a known history of coronary artery disease status post intervention via Dr. Meyer, has a history of hypertension, dyslipidemia, ongoing tobacco use, 2-3 week history of increasing angina, actually was seen in the office, scheduled for nuclear stress testing; however, began having the onset of rest symptomology yesterday. He been having marked dizziness, lightheadedness, visual changes consistent with amaurosis, had a previous carotid Doppler with by his report at least 50% lesion. We are asked to see him concerning his cardiovascular status. PAST MEDICAL HISTORY: Includes; 1. History of hypertension. 2. Hyperlipidemia. 3. Coronary artery disease as described above. 4. Cerebrovascular disease via carotid Doppler. ALLERGIES: None known. MEDICATIONS: Typically include Plavix 75 every day, amlodipine 10 every day, atenolol 25 every day, aspirin 81 every day, oxycodone 20 t.i.d., Protonix 20 every day. 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 Easily takes care of all his ADLs. Smokes about a pack a day. Social drinker. REVIEW OF SYSTEMS: The patient reports easy bruising but reports no swollen glands. The patient reports no fever, no night sweats, no significant weight gain, no significant weight loss. No significant exercise tolerance. The patient reports no dry eyes, no irritation, no vision change. Patient reports no difficulty hearing and no ear pain. Patient reports no frequent nose bleeds or nose and sinus problems. Patient reports on arm pain on exertion. No shortness of breath while lying down. No history of heart murmur. Patient reports no cough, no wheezing or coughing up blood. Patient reports no abdominal pain, no vomiting. Normal appetite. No diarrhea and not vomiting blood. No nausea and no constipation. Patient reports no incontinence. No difficulty urinating. No hematuria. No increased frequency. Patient reports no muscle aches. No weakness, no arthralgias, no back pain. No swelling of the extremities. Patient reports no abnormal mole, no jaundice, no rashes. Reports no loss of consciousness. No weakness and no numbness. No seizures, dizziness, or headaches. The patient reports no depression, no sleep disturbance, feeling safe in a relationship and no alcohol abuse. Patient reports on fatigue. Reports no runny nose or sinus pressure. No itching, no hives, and no frequent sneezing. PHYSICAL EXAMINATION: GENERAL: Pleasant, in no acute distress, appears stated age. VITAL SIGNS: Blood pressure 136/68, pulse 58 and regular. HEENT: Normocephalic and atraumatic. NECK: No JVD or bruit. HEART: Regular. A II/ systolic ejection murmur. LUNGS: Slightly prolonged expiratory phase. HISTORY AND PHYSICAL [id number] [facility] ABDOMEN: Soft and nontender. EXTREMITIES: Pulses 2+ with no edema. DIAGNOSTIC DATA: EKG shows nonspecific ST changes inferolaterally. IMPRESSION: Acute coronary syndrome, associated transient ischemic attack type symptomatology with known cerebrovascular disease, noninvasive studies. PLAN: For angiography, 4-vessel arteriography. Intervention based on the above. TRANSINT:[id number] Voice Confirmation ID: [id number] DOCUMENT ID: [id number] JUANITO PONCE MD CC: [id number] DICTATION DATE: 01/11/20932 FINANCIAL ADMINISTRATOR: 01/11/20 1430 DIS IN 01/11/20 [facility] [address] [place] [address]
--- NOTE | ~2020-01-10 | OP ---
PATIENT NAME: ALFREDITO SHARIF MEDICAL RECORD: [id number] :58 LOCATION:[facility] ADMISSION DATE:01/10/20 SURGEON: JUANITO PONCE MD DATE OF OPERATION: 01/11/2020 PROCEDURE: Left heart catheterization, selective coronary angiography plus iFR wire plus 4-vessel arteriography, right femoral artery approach. CATHETERS: A 5-Yemeni sheath, 5/4 pig. The procedure was well tolerated. The patient returned to sharif. Sheath removed. ExoSeal device placed. FINDINGS: Left ventriculography in 30-degree HOU view: Normal wall motion and normal systolic function. CORONARY ANATOMY: LEFT MAIN: Area of previous stenting is widely patent. 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 No evidence of restenosis. CIRCUMFLEX: Has a questionable ostial stenosis of the circumflex; however, iFR wire was normal at 1 across this lesion. RIGHT CORONARY ARTERY: Area of previous stenting is widely patent without restenosis. No evidence of progressive disease distally. FOUR-VESSEL ARTERIOGRAPHY. Right common carotid is selectively engaged. It is a small vessel, free of disease. The right internal carotid shows some mild luminal irregularities, no flow obstructive stenosis. Right external carotid is free of disease. Left, the catheter was then withdrawn proximally and the left common carotid is selectively engaged. It is a small vessel, free of disease. Left internal carotid is somewhat tortuous but otherwise free of disease. Left external carotid is free of disease. IMPRESSION: 1. No significant cerebrovascular disease. 2. No restenosis of the previously placed stents. 3. No de geronimo lesions including with iFR wire. NTS:[id number] Voice Confirmation ID: [id number] DOCUMENT ID: [id number] JUANITO PONCE MD CC: [id number] DICTATION DATE: 01/11/20 1047 [employer] DIRECTOR: 01/11/20 190 DIS IN 01/11/20 [facility] [address] [place] [id number]
[~2020-01-10 16:18] MED LIST changes: +OXYCODONE HCL10 MG PO
[2020-01-10 16:39] VITALS: Ht 182.9 cm; Wt 72.3 kg
[2020-01-10 17:25] LABS: BASOPHILS 0.3 % (0-2); EOSINOPHILS 1.6 % (0-7); HEMATOCRIT 38.6 % (42.0-54.0); HEMOGLOBIN 13.3 g/dL (13.5-17.5); IMMATURE GRANULOCYTES 0.1 % (0-5); LYMPHOCYTES 23.9 % (15-50); MCH 36.2 pg (26.0-34.0); MCHC 34.5 g/dL (31.0-37.0); MCV 105.2 fL (80.0-100.0); MEAN PLATELET VOLUME 9.3 fL (7.4-10.4); NEUTROPHILS 64.1 % (40-80); PLATELET COUNT 213 10x3/uL (130-400); RBC 3.67 10x6/uL (4.20-6.10); RDW 13.2 % (11.5-14.5)
[2020-01-10 17:42] LABS: CALC OSMOLALITY 276 mosm/kg (275-300); CALCIUM 8.6 mg/dL (8.5-10.1); CARBON DIOXIDE 27.4 mmol/L (21.0-32.0); CHLORIDE - SERUM 104 mmol/L (98-107); CREATININE - SERUM 0.7 mg/dL (0.6-1.3); GLUCOSE 108 mg/dL (74-106); POTASSIUM - SERUM 3.3 mmol/L (3.5-5.1); SODIUM 139 mmol/L (136-145); UREA NITROGEN 6 mg/dL (7-18); eGFR NON AFRICAN AMERICAN > 90 mL/min (90-120)
[2020-01-10 17:45] LABS: APTT 33.1 SECONDS (22.8-39.4); INR 1.1 (0.85-1.17); PROTIME 14.1 SECONDS (11.6-15.0)
[2020-01-10 18:03] LABS: ALBUMIN 3.5 g/dL (3.4-5.0); ALKALINE PHOSPHATASE 88 U/L (30-120); ALT (SGPT) 37 U/L (10-68); BILIRUBIN - TOTAL 0.29 mg/dL (0.2-1.3); CKMB 0.9 U/L (0.0-3.6); CREATINE KINASE 38 UL (21-232); MAGNESIUM - SERUM 1.5 mg/dL (1.8-2.4); PROTEIN - SERUM 7.1 g/dL (6.4-8.2); TROPONIN-I < 0.017 ng/mL (0.000-0.060)
[2020-01-10 18:11] VITALS: BP 138/68
--- NOTE | 2020-01-10 18:22 | NUR ---
URINE SPEC COLLECTED, LABELED AT BS AND SENT TO LAB
--- NOTE | 2020-01-10 19:12 | NUR ---
BS REPORT TO LEIA MURILLO
--- NOTE | 2020-01-10 20:36 | NUR ---
AT BEDSIDE, PT UP CHANGING CLOTHES AND EATING PIZZA AT THIS TIME. DENIES ANY NEEDS. WILL CONTINUE TO MONITOR.
[2020-01-10 21:00] VITALS: BP 138/83
--- NOTE | 2020-01-10 22:16 | NUR ---
PT AMBULATED TO THE RESTROOM INDEPENDENTLY.
[2020-01-10 23:00] VITALS: BP 109/50
[2020-01-11 00:21] LABS: ANION GAP 6.8 mmol/L (8-16); CARBON DIOXIDE 30.8 mmol/L (21.0-32.0); POTASSIUM - SERUM 3.6 mmol/L (3.5-5.1)
--- NOTE | 2020-01-11 00:56 | NUR ---
PT AMBULATED TO THE RESTROOM INDEPENDENTLY.
--- NOTE | 2020-01-11 03:39 | NUR ---
PT REQUESTING ORDERED DOSE OF PAIN MEDICATION AT THIS TIME.
[2020-01-11 04:00] VITALS: BP 136/68
[2020-01-11 06:10] LABS: BASOPHILS 0.2 % (0-2); EOSINOPHILS 3.3 % (0-7); HEMATOCRIT 37.2 % (42.0-54.0); HEMOGLOBIN 12.8 g/dL (13.5-17.5); LYMPHOCYTES 33.5 % (15-50); MCH 36.2 pg (26.0-34.0); MCHC 34.4 g/dL (31.0-37.0); MCV 105.1 fL (80.0-100.0); MEAN PLATELET VOLUME 9.8 fL (7.4-10.4); MONOCYTES 8.8 % (2-11); NEUTROPHILS 54.2 % (40-80); PLATELET COUNT 219 10x3/uL (130-400); RBC 3.54 10x6/uL (4.20-6.10); RDW 13.2 % (11.5-14.5)
[2020-01-11 06:11] LABS: WBC 5.8 10x3/uL (4.8-10.8)
[2020-01-11 06:41] LABS: ALBUMIN 3.1 g/dL (3.4-5.0); ALKALINE PHOSPHATASE 83 U/L (30-120); ALT (SGPT) 38 U/L (10-68); BILIRUBIN - TOTAL 0.34 mg/dL (0.2-1.3); CALC OSMOLALITY 280 mosm/kg (275-300); CALCIUM 8.4 mg/dL (8.5-10.1); CARBON DIOXIDE 26.6 mmol/L (21.0-32.0); CHLORIDE - SERUM 105 mmol/L (98-107); CKMB 0.8 U/L (0.0-3.6); CREATINE KINASE 30 UL (21-232); CREATININE - SERUM 0.7 mg/dL (0.6-1.3); GLUCOSE 106 mg/dL (74-106); POTASSIUM - SERUM 3.4 mmol/L (3.5-5.1); PROTEIN - SERUM 6.4 g/dL (6.4-8.2); SODIUM 142 mmol/L (136-145); TROPONIN-I 0.024 ng/mL (0.000-0.060); UREA NITROGEN 6 mg/dL (7-18); eGFR NON AFRICAN AMERICAN > 90 mL/min (90-120)
--- NOTE | 2020-01-11 07:15 | NUR ---
REPORT GIVEN TO LEIA AQUINO
[2020-01-11 09:07] LABS: CHOL - HDL RATIO 4.5 ratio (2.3-4.9); LDL-HDL RATIO 2.2 ratio (1.5-3.5)
--- NOTE | 2020-01-11 10:50 | NUR ---
PT REC'D TO ROOM 10 VIA STRETCHER FROM HYBRID TESTER. MONITORS ESTAB. NO FAMILY PRESENT. SEE MAGICIAN/ILLUSIONIST. ALARMS ON AND C/L IN REACH.
[2020-01-11] MEDS ORDERED: MEDROL DOSE PACK4 MG PO (11:01)
--- NOTE | 2020-01-11 11:05 | NUR ---
R GROIN SITE SOFT, NO S/S BLEEDING OR HEMATOMA. R LEG/FOOT WARM WITH PALP PULSES AND CAP REFILL WNL. PT AWAKENS EASILY, ORIENTED TO SITUATION. ALARMS ON AND C/L IN REACH.
--- NOTE | 2020-01-11 11:35 | NUR ---
R GROIN SITE SOFT, C/D/I, NO S/S BLEEDING OR HEMATOMA. PULSES PALP. PT SPOKE WITH FAMILY ON PHONE RE: D/C AT 1300. VSS. ALARMS ON AND C/L IN REACH.
--- NOTE | 2020-01-11 11:50 | NUR ---
R GROIN SITE C/D/I, NO S/S BLEEDING OR HEMATOMA. PULSES PALP. FEET WARM. VSS. PT TALKING ON PHONE, DENIES PAIN.
--- NOTE | 2020-01-11 12:05 | NUR ---
R GROIN SITE SOFT, C/D/I. HOB ELEVATED SLOWLY. SANDWICH TRAY AND COLA PROVIDED. ALARMS ON AND C/L IN REACH.
--- NOTE | 2020-01-11 12:30 | NUR ---
R GROIN SITE SOFT, C/D/I. PT TOLERATED EATING. DENIE PAIN OR NEEDS. VSS. C/L IN REACH.
--- NOTE | 2020-01-11 12:50 | NUR ---
R GROIN SITE SOFT, NO S/S BLEEDING OR HEMATOMA. PIV D/C'D INTACT, DSG APPLIED. PT ALLOWED UP TO GET DRESSED AND GO TO BR INDEPENDENTLY.
--- NOTE | 2020-01-11 13:05 | NUR ---
ALL DISCHARGE INSTRUCTIONS, INCLUDING RESTRICTIONS, MEDS AND F/U APPT. PT VERBALIZES UNDERSTANDING. WAITING FOR TO PICK HIM UP.
--- NOTE | 2020-01-11 13:15 | NUR ---
PT DISCHARGED VIA W/C TO PRIVATE VEHICLE WITH ALL PAPERWORK AND BELONGINGS.
== END 2020-01-11 13:15 | disposition home or self-care (01) ==
LOC: D.EDHOLD → D.ER 16:18 → OBSVTIME 19:00 → D.EDHOLD 19:00 → D.CLR 19:00
PROVIDERS: Family Medicine; ADMIT Internal Medicine Interventional Cardiology; ATTEND Internal Medicine Interventional Cardiology
DX: I25.110 Atherosclerotic heart disease of native coronary artery with unstable angina pectoris (principal); Z72.0 Tobacco use; I10 Essential (primary) hypertension; E78.5 Hyperlipidemia, unspecified; R07.9 Chest pain, unspecified